=== PATIENT | female | born 1980 | race African-American/Black ===

== ENCOUNTER 2024-05-26 10:13 | Outpatient (AMB) | payer OTHER, SELFPAY ==
--- NOTE | 2024-05-26 10:36 | A.OFFPC_ITS ---
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 Note: Pt is here today as a New Patient to est care/PE Allergies No Known Allergies Allergy (Verified 05/26/24 10:47) Medication List - Last Reconciled 05/26/24 by Kamala Shah MD bupropion HCl XL 150 mg PO QAM cholecalciferol (vitamin D3) 50 mcg PO DAILY esomeprazole magnesium 40 mg PO DAILY ondansetron 4 mg PO Q8H simethicone 80 mg PO BID-QID PRN spironolactone 50 mg PO BID valacyclovir 500 mg PO BID Tobacco use date assessed: 05/26/24 Dental Screening Dental Screen Date: 05/26/24 Did you have a dental visit in the last 12 months?: Yes Did you have a dental problem in the last 6 months where you did not have access to dental care?: No Was dental information given to patient?: Patient has dentist 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 She has history of chronic GERD and Davis's esophagus, currently on esomeprazole 40 mg daily, has hidradenitis suppurativa currently on spironolactone 50 mg twice a day and has history of genital herpes. Patient states that she has been diagnosed with anxiety depression even when she was younger and has been placed on bupropion HCL 150 mg once a day by her previous PCP which she states she is able to tolerate, but does not seem to help at all. She goes to [facility] for her routine Pap and pelvic exam, last Pap and pelvic exam was done 03/2024 with benign findings per patient. Complains of vaginal itching, requesting a prescription for fluconazole, as she thinks she developed a yeast infection after recent antibiotic treatment for her hidradenitis suppurativa given by her previous PCP. [facility] Medical History (Updated 05/26/24 @ 11:07 by Kamala Shah MD) Chronic GERD History of Davis's esophagus Anxiety and depression Hidradenitis suppurativa History of herpes genitalis Surgical History (Updated 05/26/24 @ 11:07 by Kamala Shah MD) Hx of colonoscopy History of esophagogastroduodenoscopy (EGD) History of Hx of breast reduction, elective History of sleeve gastrectomy Family History (Updated 05/26/24 @ 11:03 by Kamala Shah MD) Father Mental health disorder Mother Ovarian cancer, Onset Age: 60 Chronic kidney disease, stage 4 (severe) Essential hypertension Osteoarthritis Social History (Updated 05/26/24 @ 11:18 by Kamala Shah MD) Housing: House Alcohol intake: current Alcohol intake frequency: holidays/special occasions only Alcohol type: wine Patient Tobacco Use Status: Never used Tobacco e-Cigarette/Vaping Use: Never Used service: No Current occupational status: employed Cognitive needs: No Hearing needs: No Vision needs: Yes Female Reproductive History Menstrual Date of last menstrual period: 04/20/24 control method: vaginal ring Other: Goes to [facility], last Pap smear was around 03/2024 Questionnaire PHQ-9 Over the last 2 weeks, how often have you been bothered by any of the following problems? 1. Little interest or pleasure in doing things: more than half the days 2. Feeling down, depressed, or hopeless: more than half the days 3. Trouble falling or staying asleep, or sleeping too much: more than half the days 4. Feeling tired or having little energy: nearly every day 5. Poor appetite or overeating: nearly every day 6. Feeling bad about yourself - or that you are a failure or have let yourself or your family down: several days 7. Trouble concentrating on things, such as reading the newspaper or watching television: nearly every day 8. Moving or speaking so slowly that other people could have noticed. Or the opposite - being so fidgety or restless that you have been moving around a lot more than usual: several days 9. Thoughts that you would be better off or of hurting yourself in some way: not at all Total score: 17 Depression Screening Interpretation: Positive Depression Screening Follow-up: Existing condition and In treatment Depression Screening Done: Yes 95137 - PHQ-9 Billing: Yes Source: Developed by Drs. Tyshawn Arevalo, Ysabel Ricketts, Quinten Eugene and colleagues, with an educational melissa from [employer]. Thrive Questionnaire Date Thrive assessed: 05/26/24 I am a: Patient What is your living situation today?: I have a steady place to live Within the past 12 months, did the food you bought not last and you didn't have the money to get more?: Often true Within the past 12 months, did you worry whether your food would run out before you got money to buy more?: Never true Do you have trouble paying for medicines?: No Do you have trouble getting transportation to medical appointments?: No Do you have trouble paying your heating and electricity bill?: Yes Do you have trouble taking care of your child, family member or friend?: No Do you have trouble with day-to-day activities such as bathing, preparing meals, shopping, managing finances, etc.?: No Are you currently unemployed and looking for a job?: No Are you interested in more education?: No Please select the resources that you would like help with: None Currently or been in a relationship where the following occur: No concerns reported THRIVE Score: 2 AUDIT C Alcohol Use Questionnaire (AUDIT-C) 1. How often do you have a drink containing alcohol?: Monthly or less 2. How many drinks containing alcohol do you have on a typical day when you are drinking?: 1 or 2 3. How often do you have six or more drinks on one occasion?: Never Total Score: 1 YAKELIN-7 AMB Questionnaire YAKELIN-7 Date YAKELIN - 7 assessed: 05/26/24 Feeling nervous, anxious, or on edge: 3 = Nearly every day Not being able to stop or control worryin = Nearly every day Worrying too much about different things: 3 = Nearly every day Trouble relaxin = Nearly every day Being so restless that it is hard to sit still: 3 = Nearly every day Becoming easily annoyed or irritable: 3 = Nearly every day Feeling afraid as if something awful might happen: 0 = Not at all Total YAKELIN-7 score (0-4 normal; 5-9 mild; 10-14 moderate; 15-21 severe): 18 Source: Developed by Ysabel Hodge Kurt Kroenke and colleagues, with an educational melissa from [employer]. YAKELIN-7 Assessment Billing YAKELIN-7 Assessment Tool: YAKELIN-7 Assessment 67507 Review of Systems Const Denies body aches, Denies fatigue, Denies fever(s) and Denies headache(s) Eyes Denies change in vision ENT Denies dizziness, Denies headache(s) and Denies nasal congestion Card Denies chest pain, Denies lightheadedness, Denies palpitations and Denies dyspnea Resp Denies chest congestion, Denies cough, Denies dyspnea and Denies wheezing GI Denies abdominal pain, Denies change in bowel habits and Denies heartburn Details: Complaining of vaginal itching, recently was on antibiotics for her hidradenitis suppurativa Denies hematuria, Denies urinary frequency, Denies dysuria and Denies urinary urgency Skin/Breast Details: Sees Dr. Feliciano for hidradenitis suppurativa in axilla and inguinal areas, has recurrent antibiotics and is currently on spironolactone Denies breast pain and Denies breast mass Neuro Denies dizziness and Denies headache(s) Psych Reports as per HPI Endo Denies fatigue, Denies polydipsia, Denies polyuria and Denies palpitations Blanco/Lymph Denies easy bruising Aller/Immun Denies seasonal rhinorrhea and Denies wheezing Physical exam (Primary Care) Vital Signs: Last Vital Signs Temp 98.2 F 05/26/24 10:38 Pulse 52 05/26/24 10:38 Resp 16 05/26/24 10:38 BP 100/66 05/26/24 10:38 Pulse Ox 99 05/26/24 10:38 Oxygen Delivery Method Room Air 05/26/24 10:38 BMI result Body Mass Index 32.7 Tobacco/Smoking Status: Tobacco use Status Tobacco use date assessed 05/26/24 05/26/24 10:49 Patient Tobacco Use Status Never used Tobacco 05/26/24 11:18 e-Cigarette/Vaping Use Never Used 05/26/24 11:18 PHQ-9: PHQ-9 Score PHQ-9: Total score 05/26/24 11:24 Depression Screening Interpretation: Positive Depression Screening Follow-up: Existing condition and In treatment Thrive Assessment: Date of Thrive Assessment Date Thrive assessed 05/26/24 05/26/24 10:49 Currently or been in a relationship where the following occur: No concerns reported Const General: comfortable, no acute distress and alert Orientation/consciousness: patient oriented x3 HENMT Ears: external ears normal, TM's normal bilaterally and EAC's normal General nose exam: Normal external nose present Mouth: Normal oral and palatal mucosa present, oropharynx normal and moist mucous membranes Eyes General: appearance normal, both eyes and all related structures Conjunctivae: conjunctivae normal Sclerae: sclerae normal Pupils: Equal, round and reactive pupils present EOM: EOMs intact bilaterally Neck Neck: Yes full ROM, Yes no lymphadenopathy and Yes supple Resp Effort & Inspection: normal respiratory effort and able to speak in complete sentences Auscultation: clear to auscultation bilaterally Cardio Rate: regular rate Rhythm: regular rhythm Heart sounds: S1 normal heart sound present and S2 normal heart sound present GI Palpation (GI): Soft to palpation, nontender and no masses Auscultation: normal bowel sounds Back/Spine/Pelvis Back: No back tenderness Skin General skin exam: no rashes or lesions noted Neuro General: patient oriented x3, gait normal, tone normal, moves all extremities, Normal light touch and pain sensation and no focal motor deficits Cranial nerves: Yes CN's II-XII intact bilaterally and Yes Equal, round and reactive pupils present Cognition (Neuro): normal cognition Extrem General: Yes full ROM, Yes no joint enlargement, Yes no clubbing, cyanosis or edema and Yes no calf tenderness Psych Appearance: grossly normal and well kempt Mental Status: mental status grossly normal Speech and movement: Normal speech and movement present Affect: normal affect Attitude: cooperative Thought process: Normal thought process present Thought content: Normal thought content present Coding Level of Care Code New Pt Level 4 (54761) Diagnoses Anxiety and depression F41.9; F32.A Pruritus of vagina N89.8 Additional Codes YAKELIN-7 Assessment Billing - YAKELIN-7 Assessment Tool: YAKELIN-7 Assessment 06283 ([id number]) PHQ-9 - 58467 - PHQ-9 Billing: Yes ([id number]) Assessment & Plan Assessment & Plan (1) Anxiety and depression: Comment: Prescribed previously at [facility] a year ago by Georges Farfan Code(s): F41.9 - Anxiety disorder, unspecified; F32.A - Depression, unspecified Category: Medical Plan: Referred to Psychiatry for further evaluation management, increased bupropion dose to 300 mg XL taken once a day in a.m. referred to our mental health coordinator Thang, for referral to see a therapist. (2) Pruritus of vagina: Code(s): N89.8 - Other specified noninflammatory disorders of vagina Plan: Prescription sent for fluconazole 150 mg per tablet to take 1 tablet once and then may repeat another dose after 3 days if symptoms on resolved. 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
[2024-05-26 10:38] VITALS: BP 100/66; PULSE 52; RESP 16; TEMP 36.8; O2SAT 99; BMI 32.7
--- OUTSIDE RECORDS SUMMARY | 2024-05-26 12:04 | XMS_ITS | Encounter Summary ---
Author Organization [facility] Address [address] [place] [address] Care Team Providers Care Manager Ob Name Role Phone David Patel MD Primary Care Provider + Luis Healy MD Unavailable [phone] Encounter Details Date Type Department Care Team Description 09/01/2022 Orders Only Medical Records [address] [place] [address] Claudio Belcher, MEDICAL ASSISTANT INSTRUCTOR [address] [place] [address] Social History Tobacco Use Types Packs/Day Years Used Date Smoking Tobacco: Never Smokeless Tobacco: Never Alcohol Use Standard Drinks/Week Comments Yes 0 (1 standard drink = 0.6 oz pur e alcohol) rarely- once every 6 months Sex Assigned at Date Recorded Not on file Job Start Date Occupation Industry Not on file Not on file Not on file COVID-19 Exposure Response Date Recorded In the last 10 days, have yo u been in contact with someone who was confirmed or suspected to have Coronavirus/COVID-19? Unable to assess 09/01/2022 7:40 AM EDT documented as of this encounter Plan of Treatment Not on file documented as of this encounter Procedures Procedure Name Priority Date/Time Associated Diagnosis Comments OUTSIDE LAB Routine 08/29/2022 documented in this encounter Results * OUTSIDE LAB (08/29/2022) Claudio Belcher NP LAB documented in this encounter Visit Diagnoses Not on filedocumented in this encounter Care Teams Manager Ob Relationship Specialty Start Date End Date David Patel MD [address] [place] [address] PCP - General Internal Medicine 07/19/21 Luis Healy MD [address] [place] [address] [place] [address] Specialist Cardiovascular Disease 07/21/22 documented as of this encounter
--- OUTSIDE RECORDS SUMMARY | 2024-05-26 12:04 | XMS_ITS | Encounter Summary ---
Author Organization [facility] Address [address] [place] [address] Care Team Providers Care Master Naval Parachutist Name Role Phone David Patel MD Primary Care Provider + Luis Healy MD Unavailable [phone] Reason for Visit * Reason Onset Date Comments Testing 12/01/2023 Encounter Details Date Type Department Care Team Description 12/01/2023 Telephone Cardio PVCA Diag Testing [address] [place] [address] Naheed Su PA-C [address] [place] [address] Testing Social History Tobacco Use Types Packs/Day Years Used Date Smoking Tobacco: Never Smokeless Tobacco: Never Alcohol Use Standard Drinks/Week Comments Yes 0 (1 standard drink = 0.6 oz pur e alcohol) rarely- once every 6 months Sex Assigned at Date Recorded Not on file Job Start Date Occupation Industry Not on file Not on file Not on file documented as of this encounter Miscellaneous Notes * Telephone Encounter - Naheed Su PA-C - 12/01/2023 10:45 AM EDT Noted, thank you * Telephone Encounter - Amy Blancowendy Ness - 12/01/2023 10:00 AM EDT Patient has to be scheduled at [facility] due to insurance, [facility]. Thank you! documented in this encounter Plan of Treatment Not on file documented as of this encounter Visit Diagnoses Not on filedocumented in this encounter Care Teams Master Naval Parachutist Relationship Specialty Start Date End Date David Patel MD [address] [place] [id number] PCP - General Internal Medicine 07/19/21 Luis Healy MD [address] [place] [address] Dr [address] [place] [address] Specialist Cardiovascular Disease 07/21/22 documented as of this encounter
--- OUTSIDE RECORDS SUMMARY | 2024-05-26 12:04 | XMS_ITS | Encounter Summary ---
Author Organization [facility] Address [address] [place] [address] Care Team Providers Care Erector Operator Name Role Phone David Patel MD Primary Care Provider + Luis Healy MD Unavailable [phone] Encounter Details Date Type Department Care Team Description 10/07/2022 Release of Information Medical Records [address] [place] [id number] [facility] Social History Tobacco Use Types Packs/Day Years [...] was confirmed or suspected to have Coronavirus/COVID-19? No / Unsure 10/07/2022 9:09 AM EDT documented as of this encounter Plan of Treatment Not on file documented as of this encounter Visit Diagnoses Not on filedocumented in this encounter Care Teams Erector Operator Relationship Specialty Start Date End Date David Patel MD [address] [place] [id number] PCP - General Internal Medicine 07/19/21 Luis Healy MD [address] [place] [address] [place] [address] Specialist Cardiovascular Disease 07/21/22 documented as of this encounter
--- OUTSIDE RECORDS SUMMARY | 2024-05-26 12:04 | XMS_ITS | Encounter Summary ---
Author Organization [facility] Address [address] [place] [address] Care Team Providers Care Rod Machine Operator Name Role Phone Rivka Cage DO Primary Care Pro vider Unavailable Karla Merritt MD Primary Care Provider Unavail able Kesha Joy MD Primary Care Provider David Kumar MD Primary Care Provider + Luis Healy MD Unavailable [phone] Reason for Visit * Reason Onset Date Comments Prior Authorization 12/01/2019 Tretinoin 0. 025% Cream Encounter Details Date Type Department Care Team Description 12/01/2019 Telephone Dermatology - [address] [address] Sharon Fung PA-C Prior Authorization (Tretinoin 0.025% Cream) Social History Tobacco Use Types Packs/Day Years [...] Exposure Response Date Recorded In the last month, have you been in contact with someone who was confirmed or suspected to have Coronavirus / COVID-19? Yes 12/01/2019 12:38 PM EDT documented as of this encounter Miscellaneous Notes * Telephone Encounter - Damaris Montero M.A. - 12/05/2019 8:00 AM EDT Prior authorization for the tretinoin cream was approved Approved from 12/02/2019 until 12/01/2020 Prior authorization approval number # [id number] Approval faxed to [facility] Angy Howell Mo at [phone] * Telephone Encounter - Damaris Montero M.A. - 12/02/2019 12:13 PM EDT Prior authorization for the tretinoin cream completed today on [facility] form Dx Acne vulgaris Intitial start Try an fails O.T.C products Noxzema cream * Telephone Encounter - Michela Otero - 12/01/2019 2:09 PM EDT Prior Authorization for Medication-do not complete and send this encounter unless you have the fax from the pharmacy. Is this a Cover My Meds request: Yes -- Kline Code [id number] Name of Medication Tretinoin 0.025% Cream Dose of Medication What is the RX # from the faxed refill? How does patient take this med? What Pharmacy did the fax come from: [facility] fax #: [phone] [employer] Information from fax: What Prescription Plan does the patient have? BIN/PCN if applicable: Cardholder ID: Person Code: Relationship Code: Help desk phone: documented in this encounter Plan of Treatment Not on file documented as of this encounter Visit Diagnoses Not on filedocumented in this encounter Care Teams Rod Machine Operator Relationship Specialty Start Date End Date Rivka Cage DO PCP - General Internal Medicine 09/01/19 08/22/20 Karla Merritt MD PCP - General Internal Medicine 08/23/20 02/25/21 Kesha Joy MD PCP - General Internal Medicine 02/26/21 07/18/21 David Patel MD [address] [place] [address] PCP - General Internal Medicine 07/19/21 Luis Healy MD [address] [place] [address] [place] [address] Specialist Cardiovascular Disease 07/21/22 documented as of this encounter
--- OUTSIDE RECORDS SUMMARY | 2024-05-26 12:04 | XMS_ITS | Encounter Summary ---
Author Organization [facility] Address [address] [place] [address] Care Team Providers Care Vision Rehabilitation Therapist Name Role Phone Bell Milton MD Primary Care Provider Kesha Lu MD Primary Care Provider Adrian key [place] Colasacco, Rivka DO Primary Care Pro vider Unavailable Haritha Morales Primary Care Provider Unavailab le [place] Colasacco, Rivka DO Primary Care Pro vider Unavailable Zelalem Mathews MD Primary Care Provider Unavacortes labgerardo [place] Colasacco, Rivka DO Primary Care Pro vider Unavailable Karla Merritt MD Primary Care Provider Unavail able Kesha Joy MD Primary Care Provider David Kumar MD Primary Care Provider + Luis Healy MD Unavailable [phone] Encounter Details Date Type Department Care Team Description 04/28/2011 [facility] Medical Records [address] [place] [address] Social History Tobacco Use Types Packs/Day Years Used Date Smoking Tobacco: Never Smokeless Tobacco: Never Alcohol Use Standard Drinks/Week Comments Yes 0 (1 standard drink = 0.6 oz pur e alcohol) rarely- once every 6 months Sex Assigned at Date Recorded Not on file Job Start Date Occupation Industry Not on file Not on file Not on file documented as of this encounter Plan of Treatment Not on file documented as of this encounter Procedures Procedure Name Priority Date/Time Associated Diagnosis Comments OUTSIDE VASCULAR STUDY Routine 04/28/2011 OUTSIDE EKG Routine 04/28/2011 OUTSIDE PLAIN FILM Routine 04/28/2011 OUTSIDE LAB Routine 04/28/2011 documented in this encounter Results * OUTSIDE PLAIN FILM (04/28/2011) Provider Abstract RADIOLOGY * OUTSIDE LAB (04/28/2011) Provider Abstract LAB * OUTSIDE VASCULAR STUDY (04/28/2011) Provider Abstract CARDIOLOGY * OUTSIDE EKG (04/28/2011) Provider Abstract CARDIOLOGY documented in this encounter Visit Diagnoses Not on filedocumented in this encounter Care Teams Vision Rehabilitation Therapist Relationship Specialty Start Date End Date Bell Milton MD PCP - General 11/13/10 12/01/12 Kesha Joy MD PCP - General Internal Medicine 12/02/12 06/20/15 Rivka Cage DO PCP - General Internal Medicine 06/21/15 07/02/15 Haritha Morales PCP - General Family Practice 07/03/15 09/02/15 Rivka Cage DO PCP - General Internal Medicine 09/03/15 08/08/19 Zelalem Mathews MD PCP - General Internal Medicine 08/09/19 08/31/19 Rivka Cage DO PCP - General Internal Medicine 09/01/19 08/22/20 Karla Merritt MD PCP - General Internal Medicine 08/23/20 02/25/21 Kesha Joy MD PCP - General Internal Medicine 02/26/21 07/18/21 David Patel MD [address] [place] [id number] PCP - General Internal Medicine 07/19/21 Luis Healy MD [address] [place] [address] [place] [address] Specialist Cardiovascular Disease 07/21/22 documented as of this encounter
--- OUTSIDE RECORDS SUMMARY | 2024-05-26 12:04 | XMS_ITS | Encounter Summary ---
Author Organization [facility] Address [address] [place] [address] Care Team Providers Care Grid Molder Name Role Phone David Patel MD Primary Care Provider + Luis Healy MD Unavailable [phone] Encounter Details Date Type Department Care Team Description 05/19/2023 Orders Only Adult Medicine [address] [address] Naheed Maravilla PA-C [address] [place] [address] [phone] Iron deficiency anemia, unspecified iron deficiency anemia type (Primary Dx) Social History Tobacco Use Types Packs/Day Years [...] documented as of this encounter Visit Diagnoses Diagnosis Iron deficiency anemia, unspecified iron deficiency anemia type- Primary documented in this encounter Care Teams Grid Molder Relationship Specialty Start Date End Date David Patel MD [address] [place] [id number] PCP - General Internal Medicine 07/19/21 Luis Healy MD [address] [place] [address] [address] [place], [place] [phone] Specialist Cardiovascular Disease 07/21/22 documented as of this encounter
--- OUTSIDE RECORDS SUMMARY | 2024-05-26 12:04 | XMS_ITS | Encounter Summary ---
Author Organization [facility] Address [address] [place] [address] Care Team Providers Care Pyrometer Temperature Regulator Name Role Phone Kesha Joy MD Primary Care Provider Adrian Edwards Colasacco, Rivka DO Primary Care Pro vider Unavailable Haritha Morales Primary Care Provider Unavailab le [place] Colasacco, Rivka DO Primary Care Pro vider Unavailable Zelalem Mathews MD Primary Care Provider Unavai labgerardo [place] Colasacco, Rivka DO Primary Care Pro vider Unavailable Karla Merritt MD Primary Care Provider Unavail able Kesha Joy MD Primary Care Provider David Kumar MD Primary Care Provider + Luis Healy MD Unavailable [phone] Encounter Details Date Type Department Care Team Description 02/08/2014 Release of Information Medical Records [address] [place] [id number] Abstract, Provider Social History Tobacco Use Types Packs/Day Years Used Date Smoking Tobacco: Never Smokeless Tobacco: Never Alcohol Use Standard Drinks/Week Comments Yes 0 (1 standard drink = 0.6 oz pur e alcohol) socially Sex Assigned at Date Recorded Not on file Job Start Date Occupation Industry Not on file Not on file Not on file documented as of this encounter Plan of Treatment Not on file documented as of this encounter Visit Diagnoses Not on filedocumented in this encounter Care Teams Pyrometer Temperature Regulator Relationship Specialty Start Date End Date Kesha Joy MD PCP - General Internal [...] Internal Medicine 02/26/21 07/18/21 David Patel MD [address] [place] [id number] PCP - General Internal Medicine 07/19/21 Luis Healy MD [address] [place] [address] [place] [address] Specialist Cardiovascular Disease 07/21/22 documented as of this encounter
--- OUTSIDE RECORDS SUMMARY | 2024-05-26 12:04 | XMS_ITS | Clinical Summary ---
Author Organization [facility] Address [address] [place] [id number] Care Team Providers Care Survey Workers Supervisor Name Role Phone David Patel MD Primary Care Pr ovider Medications Medication Sig Dispensed Refills Start Date End Date Status Multiple Vitamins-Minerals (DEKAs Bariatric) CHEW Chew 1 tablet by mouth daily. 0 06/09/2022 Active Social History Tobacco Use Types Packs/Day Years Used Date Smoking Tobacco: Never Assessed Sex and Gender Information Value Date Recorded Sex Assigned at Female 07/24/2022 2:17 PM EDT Gender Identity Female 07/24/2022 2:17 PM EDT Sexual Orientation Straight 07/24/2022 2: 17 PM EDT Job Start Date Occupation Industry Not on file Not on file Not on file Last Filed Vital Signs Vital Sign Reading Time Taken Comments Blood Pressure 114/51 07/28/2022 2:26 PM EDT Pulse 75 07/28/2022 2:26 PM EDT Temperature 36.5 ??C (97.7 ??F) 07/28/2022 2:26 PM ED T Respiratory Rate - - Oxygen Saturation 100% 07/28/2022 2:26 PM EDT Inhaled Oxygen Concentration - - Weight - - Height - - Body Mass Index - - Plan of Treatment Health Maintenance Due Date Last Done Comments Hepatitis C Screening 1979 COVID-19 Vaccine (#1) 02/07/1980 Depression Screening 1991 Preventative Health Evaluation 08/07/1997 Cervical Cancer Screening (Pap Smear) 08/07/2000 Hepatitis B Vaccines (3 of 3 - 19+ 3-dose series) 01/23/2017 11/28/2016, 06/11/2016 Influenza Vaccine (#1) 2023 9, 01/17/2016, 02/18/2013 DTap / Tdap / Td (4 - Td or Tdap) 07/20/2031 07/19/2021, 09/09/2010, 07/28/2009 Pneumococcal Vaccine Aged Out No long er eligible based on patient's age to complete this topic RSV Ped < 20 months Aged Out No longe r eligible based on patient's age to complete this topic Care Teams Survey Workers Supervisor Relationship Specialty Start Date End Date David Patel MD [address] [place] [address] PCP - General 07/15/22
--- OUTSIDE RECORDS SUMMARY | 2024-05-26 12:04 | XMS_ITS | Encounter Summary ---
Author Organization [facility] Address [address] [place] [address] Care Team Providers Care Fire Crew Specialist Name Role Phone David Patel MD Primary Care Provider + Luis Healy MD Unavailable Encounter Details Date Type Department Care Team Description 10/08/2022 SCAN Medical Records [address] [place] [id number] [facility] Social History Tobacco Use Types Packs/Day [...] on filedocumented in this encounter Care Teams Fire Crew Specialist Relationship Specialty Start Date End Date David Patel MD [address] [place], [place] [phone] PCP - General Internal Medicine 07/19/21 Luis Healy MD [address] [place] [address] [place] [address] Specialist Cardiovascular Disease 07/21/22 documented as of this encounter
--- OUTSIDE RECORDS SUMMARY | 2024-05-26 12:04 | XMS_ITS | Encounter Summary ---
Author Organization [facility] Address [address] [place] [address] Care Team Providers Care Carpet Floor Layer Apprentice Name Role Phone Kesha Joy MD Primary Care Provider David Kumar MD Primary Care Provider + Luis Healy MD Unavailable [phone] Encounter Details Date Type Department Care Team Description 05/08/2021 Hospital Medical Records [address] [place] [id number] [place] [address] Social History Tobacco Use Types Packs/Day Years [...] Name Priority Date/Time Associated Diagnosis Comments OUTSIDE PLAIN FILM Routine 05/08/2021 documented in this encounter Results * OUTSIDE PLAIN FILM (05/08/2021) Provider Abstract RADIOLOGY documented in this encounter Visit Diagnoses Not on filedocumented in this encounter Care Teams Carpet Floor Layer Apprentice Relationship Specialty Start Date End Date Kesha Joy MD PCP - General Internal Medicine 02/26/21 07/18/21 David Patel MD [address] [place] [id number] PCP - General Internal Medicine 07/19/21 Luis Healy MD [address] [place] [address] [place] [address] Specialist Cardiovascular Disease 07/21/22 documented as of this encounter
--- OUTSIDE RECORDS SUMMARY | 2024-05-26 12:04 | XMS_ITS | Clinical Summary ---
Author Organization [address] [place] [address] [place] [phone] Phone Care Team Providers Care Guitar Maker Hand Name Role Phone David Patel MD Primary Care Pr ovider Allergies No known active allergies Medications acetaminophen (TYLENOL) 500 mg tablet Take 2 tablets (1,000 mg total) by mouth. 06/22/19 23 Active buPROPion XL (WELLBUTRIN XL) 150 mg 24 hr tablet Take 1 tablet (150 mg total) by mouth 1 (one) time each day in the morning. 11/25/19 24 Active cholecalciferol (VITAMIN D-3) 50 mcg (2,000 unit) tablet Take 1 tablet (2,000 Units total) by mouth 1 (one) time each day. 12/11/19 24 Active fexofenadine (HERIBERTO) 180 mg tablet Take 1 tablet (180 mg total) by mouth 1 (one) time each day. 05/18/19 24 Active fluticasone propionate (FLONASE) 50 mcg/actuation nasal spray 1 spray per nostril twice per day, as needed for nasal congestion 05/18/19 24 Active spironolactone (ALDACTONE) 50 mg tablet Take 1 tablet (50 mg total) by mouth 2 (two) times a day. Active valACYclovir (VALTREX) 500 mg tablet Take 1 tablet (500 mg total) by mouth 2 (two) times a day. Active esomeprazole (NexIUM) [address] capsuleJasper ons:Gastroesoph ageal reflux disease, unspecified whether esophagitis present Take 1 capsule (40 mg total) by mouth 1 (one) time each day before breakfast. Do not open capsule. 30 each 11 01/27/20 24 025 Active simethicone (MYLICON) 80 mg chewable tablet Chew 1 tablet (80 mg total) every 6 (six) hours if needed for flatulence. 90 tablet 3 01/27/20 24 Active ergocalciferol (VITAMIN D-2) 1,250 mcg (50,000 unit) capsule Take 1 capsule (50,000 Units total) by mouth 1 (one) time per week. 12 each 01/27/20 24 025 Active etonogestreL-et hinyl estradioL (NUVARING) 0.12-0.015 mg/24 hr vaginal ring Insert 1 each into the vagina every 28 (twenty-eight) days. Insert vaginally and leave in place for 3 consecutive weeks, then remove for 1 week. 3 each 3 03/10/19 25 026 Active magnesium, amino acid chelate, 133 mg tablet Take 1 tablet (133 mg total) by mouth 2 (two) times a day. Active nystatin (MYCOSTATIN) cream Apply to area twice daily for 14 days 11/25/19 24 025 Discontinued ferrous sulfate 325 mg (65 mg elemental iron) tablet Take 1 tablet (325 mg total) by mouth 1 (one) time each day. 90 each 02/21/19 25 025 Active Problems Problem Noted Date Diagnosed Date Excess skin 05/02/2024 Rash 05/02/2024 Intertrigo 05/02/2024 Abdominal pannus 05/02/2024 Family history of ovarian cancer 03/10/2024 Overview (03/10/2024): Pt has tested BRCA neg Anxiety 11/25/2023 Aneurysm of ascending aorta (CMS/HCC V24) 2022 Overview (12/18/2023): Last Assessment & Plan: The patient was found to have an apparent ascending aorta aneurysm noted on a chest x-ray. A chest CT scan was recommended but he has not been completed. During today's visit, the patient tells me that her father had an ascending aorta aneurysm for which she underwent surgery. She denies any personal history of connective tissue disease. She denies any family history of a bicuspid aortic valve or sudden cardiac . At this point, we will order a chest CT scan and abdomen CT scan in order to evaluate the diameter of her thoracic and abdominal aorta. We will also order an echocardiogram to rule out any significant aortic valve disease. In the meantime, the patient was instructed to avoid any contact sports and to avoid lifting any objects weighing more than 35 pounds. Chest pain 10/08/2022 Overview (12/18/2023): Last Assessment & Plan: The patient came for evaluation due to episodes of chest pain. She has been experiencing a chest tightness sensation that occurs with exertion. The symptoms have been present for years. However, she states that the same level of exertion does not always result in the development of chest tightness symptoms. She denies any chest pain at rest. The patient has the following risk factors for coronary artery disease: Obesity. Symptoms, we will proceed with further cardiac testing. We will order an echocardiogram to rule out any significant aortic valve disease and rule out any significant ascending aorta dilation, given her chest x-ray findings. After the echocardiogram, then we will proceed with a stress test in order to rule out any cardiac ischemia with exertion. Given the patient's age, gender, description of the symptoms, and risk factors for CAD, the patient has an intermediate risk for coronary artery disease. As such, will order a stress test for evaluation of the patient's chest pain. Palpitations 10/08/2022 Overview (12/18/2023): Last Assessment & Plan: The patient has been experiencing episodes of palpitations. We will order a Holter monitor to evaluate for any underlying arrhythmias as a cause of her symptoms. We will also order an echocardiogram to rule out any significant structural heart disease. Abnormal CXR 10/03/2022 Iron deficiency anemia 07/19/2021 Gastroesophageal reflux disease 06/18/2021 Chronic sinusitis 03/29/2018 Vitamin B12 deficiency 03/29/2018 Low back pain 05/10/2008 Acquired hypothyroidism 03/06/2000 Encounters Date Type Department Care Team Description 05/02/2024 11:00 AM EDT Consult Plastic & Reconstructive Surgery [facility] [address] [place] [phone] Terrence Guzman DO Abdominal pannus (Primary Dx); Excess skin; Rash; Intertrigo 05/02/2024 Telephone General Surgery [facility] [address] [place] [address] Terrence Guzman DO prior auth (05/02/2024 pending HNE ) 03/10/2024 11:00 AM EST Office Visit Obstetrics and Gynecology [facility] [address] [place] [phone] Manda Perez CNM Women's annual routine gynecological examination (Primary Dx); Screen for STD (sexually transmitted disease); Encounter for screening mammogram for malignant neoplasm of breast; Vaginal discharge; Family history of ovarian cancer 03/04/2024 11:02 AM EST - 03/04/2024 11:59 PM EST Hospital Encounter [facility] [address] [place] [phone] Julius Calle MD Iron deficiency anemia, unspecified iron deficiency anemia type (Primary Dx) Discharge Disposition: Home or Self Care 02/26/2024 1:54 PM EST - 02/26/2024 11:59 PM [facility] Hospital Encounter [address] [phone] Julius Calle MD Iron deficiency anemia, unspecified iron deficiency anemia type (Primary Dx) Discharge Disposition: Home or Self Care from Last 3 Months Immunizations Name Administration Dates Next Due Hepatitis B (Jebkrmo-J-Ldfit , Recombivax HB-Adult) 19yo and older 11/28/2016,06/11/2016 Influenza Quadravalent, MDCK , 0.5ml, preservative free (Flucelvax) 6mo and older 03/29/2018 Influenza trivalent, 0.5mL, preservative free (Fluarix; FluLaval; Fluzone) ages 6mo and older (Afluria) 3 years and older 01/17/2016,02/18/2013 PPD Test 11/28/2016,08/03/2014 Td Tetanus diptheria (Tdvax) 7yo and older 07/19 Tdap Tetanus diptheria acell ular pertussis (Boostrix; Adacel) 7yo and older 09/09/2010 Surgical History Surgery Date Site/Laterality Comments SECTION PROCEDURE: [place] DELIVERY ONLY; COMMENT: x2 BREAST REDUCTION Bilateral PROCEDURE: [place] BREAST REDUCTION BARIATRIC SURGERY sleeve gastrectomy and hiatal hernia repair in 06/20/2022 Medical History Medical History Date Comments Chronic low back pain 07/18/2011 DX:Chronic low back pain H/O bilateral breast reducti on surgery 2016 DX:H/O bilateral breast redu ction surgery 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 DX:Herpes simplex antibody positive Herpes genitalis DX:Herpes genit cristi Family History Medical History Relation Name Comments Other: cardiac Father Missing a hea rt valve Nephrolithiasis Mother gout Ovarian cancer Mother Colon cancer Paternal Grandmother Breast cancer Neg Hx Kidney cancer Neg Hx Pancreatic cancer Neg Hx Prostate cancer Neg Hx Uterine cancer Neg Hx Relation Name Status Comments Brother Alive Healthy Father Alive Healthy Mother Alive Healthy Paternal Grandmother Sister Alive Healthy Social History Tobacco Use Types Packs/Day Years Used Date Smoking Tobacco: Never Smokeless Tobacco: Never Tobacco Cessation:Counseling Given: Not Answered Alcohol Use Standard Drinks/Week Comments Yes 0 (1 standard drink = 0.6 oz pur e alcohol) Comments Unknown Sex and Gender Information Value Date Recorded Sex Assigned at Female 02/23/2024 10:30 AM EST Legal Sex Female 5:37 AM EST Gender Identity Female 02/23/2024 10:30 AM EST Sexual Orientation Straight 02/23/2024 10 :30 AM EST Obstetrics History Para Term AB IAB SAB Ectopic Multiple Livin g Live Births 3 3 1 2 3 3 Date Outcome GA Total Labor Labor/2nd/3rd Weight Sex Type Anes PTL Cristina A1 A5 Name Clin 1998 Term 40w 0d 4451 g (157 oz) M Vag-S pont Living 2002 30w 0d 2268 g (80 oz) M CS-Un spec Living Comments:toxemia in mo m 2009 25w 0d 907 g (32 oz) F CS-Un spec Living Comments:toxemia in mo m Last Filed Vital Signs Vital Sign Reading Time Taken Comments Blood Pressure 108/46 05/02/2024 10:38 AM EDT Pulse 62 05/02/2024 10:38 AM EDT Temperature 36.4 ??C (97.6 ??F) 03/04/2024 11:[address] Respiratory Rate 16 03/10/2024 11:01 AM EST Oxygen Saturation 100% 03/04/2024 11:38 AM EST Inhaled Oxygen Concentration - - Weight 80.5 kg (177 lb 6.4 oz) 05/02/2024 10:38 AM EDT Height 157.5 cm (5' 2 ) 05/02/2024 10:38 AM EDT Body Mass Index 32.45 05/02/2024 10:38 AM EDT Plan of Treatment Upcoming Encounters Date Type Department Care Team (Latest Contact Info) Description 08/01/2024 1:00 PM EDT Consult Plastic & Reconstructive Surgery [address] [phone] Terrence Guzman, [address] [address] 08/09/2024 7:30 AM EDT Hospital Encounter [facility] OR [address] [place] [phone] Terrence Guzman DO [address] [address] 08/09/2024 7:30 AM EDT - 08/09/2024 10:00 AM EDT Surgery [facility] OR [address] [place] [phone] Terrence Guzman DO [address] [address] PANNICULECTOMY [[id number] (CPT??)] 08/17/2024 1:00 PM EDT Office Visit Plastic & Reconstructive Surgery [facility] [address] [phone] Lázaro Price PA [address] [address] Scheduled Procedures Name Priority Associated Diagnoses Date/Ti me PANNICULECTOMY Excess skin Abdominal pannus 08/09/2024 7:30 AM EDT Health Maintenance Due Date Last Done Comments Breast Cancer Screening 1980 Hepatitis B Vaccines (3 of 3 - 19+ 3-dose series) 12/25/2017 10/30/2017, 11/28/2016, 06/11/2016 Social Influencers of Health Screening 01/18/2022 COVID-19 Vaccine ( season) 2023 11/10/2022, 02/22/2020, 01/30/2020 Depression Screening 11/24/2024 11/25/2023 Cholesterol Screening (Lipid Panel) 06/20/2026 06/20/2021 Cervical Cancer Screening: HPV 03/10/2029 03/10/2024, 06/15/2017 DTaP,Tdap,and Td Vaccines (4 - Td or Tdap) 07/20/2031 07/19/2021, 09/09/2010, 07/28/2009 HIV Screening Completed 03/10/2024, 12/30/2018 Hepatitis C Screening Completed 03/10/2024, 023 Influenza Vaccine Completed 04/07/2024, , 12/06/2021, Additional history exists HIB Vaccines Aged Out No longer eligi ble based on patient's age to complete this topic HPV Vaccines Aged Out No longer eligi ble based on patient's age to complete this topic Hepatitis A Vaccines Aged Out No long er eligible based on patient's age to complete this topic IPV Vaccines Aged Out No longer eligi ble based on patient's age to complete this topic MMR Vaccines Aged Out No longer eligi ble based on patient's age to complete this topic Meningococcal ACWY Vaccine Aged Out N o longer eligible based on patient's age to complete this topic Meningococcal B Vaccine Aged Out No l onger eligible based on patient's age to complete this topic Pneumococcal Vaccine: Pediatrics (0 to 5 Years) and At-Risk Patients (6 to 64 Years) Aged Out No longer eligible based on patient's age to complete this topic RSV Immunization Patients Under 20 months Aged Out No longer eligible based on patient's age to complete this topic Varicella Vaccines Aged Out No longer eligible based on patient's age to complete this topic Procedures Procedure Name Priority Date/Time Associated Diagnosis Comments CHLAMYDIA TRACHOMATIS AND NEISSERIA GONORRHOEAE BY TMA, THINPREP Routine 03/10/2024 11:43 AM EST Women's annual routine gynecological examination PAP SMEAR Routine 03/10/2024 11:43 AM EST Women's annual routine gynecological examination HPV WITH REFLEX GENOTYPE Routine 03/10/2024 11:43 AM EST Women's annual routine gynecological examination TRICHOMONAS VAGINALIS ANTIGEN Routine 03/10/2024 11:43 AM EST Vaginal discharge WET PREP, GENITAL Routine 03/10/2024 11: 43 AM EST Vaginal discharge HEPATITIS C ANTIBODY Routine 03/10/2024 11:32 AM EST Screen for STD (sexually transmitted disease) TREPONEMA PALLIDUM ANTIBODY WITH REFLEX TO RPR AND PARTICLE AGGLUTINATION Routine 03/10/2024 11:32 AM EST Screen for STD (sexually transmitted disease) HIV 1, 2 ANTIBODY, P24 ANTIGEN WITH REFLEX TO DIFFERENTIATION Routine 03/10/2024 11:32 AM EST Screen for STD (sexually transmitted disease) HM DEPRESSION SCREENING Routine 11/25/2023 LIPID PANEL Routine 06/20/2021 from Last 3 Months or Most Recently Relevant to Health Maintenance Results * Chlamydia trachomatis and neisseria gonorrhoeae by tma, thinprep (03/10/2024 11:43 AM EST) N. gonorrhoeae, RNA Probe Negative Negative LAB MICROBIOLOGY METHOD 03/11/2024 1:53 PM EST [facility] Chlamydia, RNA Probe Negative Negative LAB MICROBIOLOGY METHOD 03/11/2024 1:53 PM EST [facility] Brushing/Spatula Cervix uteri structure / Unknown 03/10/2024 11:43 AM EST 03/11/2024 8:10 AM EST us Manda Perez [facility] LAB CYTOLOGY ORDERABLES Fin al Result [facility] [address] [place] [address], [place] [phone] * HPV with reflex genotype (03/10/2024 11:43 AM EST) HPV Negative Negative LAB MICROBIOLOGY METHOD 03/11/2024 2:58 PM EST [facility] Brushing/Spatula Cervix uteri structure / Unknown 03/10/2024 11:43 AM EST 03/11/2024 8:10 AM EST us Manda Perez [facility] MOLECULAR DIAGNOSTICS O RDERABLES Final Result Performing Organization Address City/[facility]/ZIP Co de Phone Number [facility] [address] [place] [address], [place] [phone] * Trichomonas vaginalis antigen (03/10/2024 11:43 AM EST) Trichomonas vaginalis Negative Negative 03/10/2024 6:57 PM EST [facility] Swab Vaginal structure / Unknown Non-blood Collection / Unknown 03/10/2024 11:43 AM EST 03/10/2024 11:43 AM EST us Manda Perez [facility] LAB MICROBIOLOGY - GENERAL ORDERABLES Final Result [facility] [address] [place] [address], [place] [phone] * (ABNORMAL) Wet prep, genital (03/10/2024 11:43 AM EST) Clue Cells, Wet Prep Positive(A) Negative 03/10/2024 6:56 PM EST [facility] Yeast, Wet Prep Negative Negative 03/10/2024 6:56 PM [facility] Trichomonas, Wet Prep Indeterminate Negative 03/10/2024 6:56 PM EST [facility] Comment:Refer to Trichomonas antigen. Swab Vaginal structure / Unknown Non-blood Collection / Unknown 03/10/2024 11:43 AM EST 03/10/2024 11:43 AM EST Manda DYER LAB MICROBIOLOGY - GENERAL ORDERABLES Final Result [facility] [address] [place] [address], * Pap smear (03/10/2024 11:43 AM EST) Interpretation Negative for intraepithelial lesion or malignancy 03/15/2024 3:26 PM [facility] General Categorization Negative 03/15/2024 3:26 PM [facility] Other Findings Shift in shannon suggestive of bacterial vaginosis 03/15/2024 3:26 PM [facility] LMP 01/13/2024 03/15/2024 3:26 PM [facility] Specimen Adequacy Satisfactory for evaluation, endocervical/clemons sformation zone component present 03/15/2024 3:26 PM [facility] Pap Methodology Liquid Based Pap Test 03/15/2024 3:26 PM [facility] Disclaimer The Pap test is a screening test which carries an inherent false negative rate. These test results should be correlated with the patient's clinical findings and history. This Pap test was processed using an automated screening system. Technical cytopathology services provided by [facility], at [address] [place] [address] ([place] # [id number]/Efraín Haley MD, Claims Configuration Analyst.) 03/15/2024 3:26 PM EST [facility] Console Pap Interpretation Reported 03/15/2024 3:26 PM EST [facility] Brushing/Spatula Cervix uteri structure / Unknown 03/10/2024 11:43 AM EST 03/10/2024 11:43 AM EST [facility] ORDERABLES Fin al Result Performing Organization Address City/[facility]/ZIP Co de Phone Number [facility] [address] [place] [address], [place] [phone] * Hepatitis C antibody (03/10/2024 11:32 AM EST) Hepatitis C Antibody Negative Negative LAB CHEMISTRY METHOD 03/10/2024 3:19 PM EST [facility] Blood Venous blood specimen / Unknown Venipuncture / Unknown 03/10/2024 11:32 AM EST 03/10/2024 11:32 AM EST Manda Perez [facility] LAB BLOOD ORDERABLES Final Result [facility] [address] [place] [address], [place] [phone] * HIV 1,2 antibody, p24 antigen with reflex to differentiation (03/10/2024 11:32 AM EST) HIV Combo AB/AG Negative Negative LAB CHEMISTRY METHOD 03/10/2024 3:20 PM EST [facility] Blood Venous blood specimen / Unknown Venipuncture / Unknown 03/10/2024 11:32 AM EST 03/10/2024 11:32 AM EST Narrative [facility] - 03/10/2024 3:20 PM EST This assay is a 4th generation assay allowing for earlier detection of HIV infection by detecting the presence of the HIV-1 p24 antigen as well as the traditional antibodies to HIV type 1 (including group O) and type 2. ??Use of a 4th generation assay is the current CDC recommendation for HIV screening. Manda Perez [facility] LAB BLOOD ORDERABLES Final Result Performing Organization Address [facility]/ZIP Co de Phone Number [facility] [address] [place] [address], [place] [phone] * Treponema pallidum antibody with reflex to RPR and particle agglutination (03/10/2024 11:32 AM EST) [facility] T. Pallidum Antibodies Negative Negative LAB CHEMISTRY METHOD 03/10/2024 2:51 PM EST [facility] Blood Venous blood specimen / Unknown Venipuncture / Unknown 03/10/2024 11:32 AM EST 03/10/2024 11:32 AM EST Manda Perez [facility] LAB BLOOD ORDERABLES Final Result Performing Organization Address [facility]/ZIP Co de Phone Number [facility] [address] [place] [address], [place] [phone] * Depression Screening (11/25/2023) [facility] Depression Screening abstracted [facility] Provider HEALTH MAINTENANCE Final Result * (ABNORMAL) Lipid panel (06/20/2021) [facility] LDL/HDL Ratio 6(A) 0 - 4 Triglycerides 225(A) 0 - 150 mg/dL Cholesterol 154 0 - 200 mg/dL HDL 27(A) >=40 mg/dL LDL Cholesterol 82 0 - 100 mg/dL Blood Venous blood specimen / Unknown us Historical Provider LAB BLOOD ORDERABLES Betty l Result from Last 3 Months or Most Recently Relevant to Health Maintenance Insurance [facility] [address] [place] [address] Care Teams Guitar Maker Hand Relationship Specialty Start Date End Date David Patel MD [address], [place] PCP - General Internal Medicine 07/19/21
--- OUTSIDE RECORDS SUMMARY | 2024-05-26 12:04 | XMS_ITS | Encounter Summary ---
Author Organization [facility] Address [address] [place] [address] Care Team Providers Care Assembler Product Name Role Phone David Patel MD Primary Care Provider + Luis Healy MD Unavailable [phone] Reason for Visit * Reason Onset Date Comments Prior Authorization 10/08/2022 [id number] ch est Encounter Details Date Type Department Care Team Description 10/08/2022 Telephone Cardio [facility] [address] [place] [address] Drive [address] [place] [phone] Luis Healy MD [address] [place] [address] [phone] Prior Authorization ([id number] chest) Social History Tobacco Use Types Packs/Day Years [...] AM EDT documented as of this encounter Miscellaneous Notes * Telephone Encounter - Yoly Rizvi - 10/08/2022 11:54 AM EDT Geovanna auth [id number] Valid 10/08/22-04/06/23 [facility] documented in this encounter Plan of Treatment Not on file documented as of this encounter Visit Diagnoses Not on filedocumented in this encounter Care Teams Assembler Product Relationship Specialty Start Date End Date David Patel MD [address] [place] [id number] PCP - General Internal Medicine 07/19/21 Luis Healy MD [address] [place] [address] [place] [address] Specialist Cardiovascular Disease 07/21/22 documented as of this encounter
--- OUTSIDE RECORDS SUMMARY | 2024-05-26 12:04 | XMS_ITS | Encounter Summary ---
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 Dr. Patel faxed order and notes on one of their patients, so they could be seen with our providers. Patient has been referred to Bariatric DX: Patient is being seen for: weight loss INS: [employer] Please review this patients new referral request. The referral has been pended. Please complete thefollowing: If approved> sign order If denied>please give instructions and route to your practice nursing pool. Practice nurse should inform referrals and the patient if denied. Order is pended * Telephone Encounter - Dot Armstrong - 06/12/2021 2:14 PM EDT What insurance does the patient have today? [facility] / Plan: CC- [facility] TYPE 2 / Product Type: HMO Dte-cek-Fblmzzy Effective 11/09/08: BCBS will not retro referral requests over 90 days. If request is for this please instruct patient to call the 800# on their insurance card to appeal. Do not submit a request. Referrals cannot be processed if the insurance is not accurate. If the insurance listed above in red is NO BILLING INFORMATION FOUND FOR THIS ENCOUTNER The patients correct insurance must be obtained and registered in [facility] or their referral can not be processed. Is this a retro request? NO. If yes for what date of service do you need the retro referral? N/A Who is calling to request this referral? Patient If the caller is not the patient, what is their name? N/A Ask the patient WHO referred them to this specialty: Patient self referred FIRST and LAST NAME of SPECIALIST PATIENT is seeing: What specialty is this? Bariatric DIAGNOSIS Patient is being seen for (Not a body part or a procedure): weight loss Have you seen this SPECIALIST for this PROBLEM/DX before?NO If YES, when: Have you checked REVIEW or the APPT DESK to see if this referral has already been done or has visits left? YES Is this visit:Initial Visit Address of Specialist: [address] [place] [address] Phone # of Specialist:[phone] Fax #: (if applicable): Does patient have an appointment scheduled?: NO Date of appointment- (including a retro-request): Is this appointment related to: Not MVA, WC or Surgery related documented in this encounter Plan of Treatment Not on file documented as of this encounter Visit Diagnoses Not on filedocumented in this encounter Care Teams Select Banker Relationship Specialty Start Date End Date Kesha Joy MD PCP - General Internal Medicine 02/26/21 07/18/21 David Patel MD [address] [place] [id number] PCP - General Internal Medicine 07/19/21 Luis Healy MD [address] [place] [address] [place] [address] Specialist Cardiovascular Disease 07/21/22 documented as of this encounter
--- OUTSIDE RECORDS SUMMARY | 2024-05-26 12:05 | XMS_ITS | Encounter Summary ---
Author Organization [facility] Address [address] [place] [address] Care Team Providers Care Air Intercept Controller Supervisor Name Role Phone David Patel MD Primary Care Provider + Luis Healy MD Unavailable [phone] Reason for Visit * Reason Onset Date Comments Provider Call Back 05/12/2022 Encounter Details Date Type Department Care Team Description 05/12/2022 Telephone General Surgery - [place] [address] [facility] [address] [place] [id number] Kaylin Mitchell MD [address] [phone] Provider Call Back Social History Tobacco Use Types Packs/Day Years [...] suspected to have Coronavirus/COVID-19? Unable to assess 05/13/2022 6:09 AM EDT documented as of this encounter Plan of Treatment Not on file documented as of this encounter Visit Diagnoses Not on filedocumented in this encounter Care Teams Air Intercept Controller Supervisor Relationship Specialty Start Date End Date David Patel MD [address] [place] [id number] PCP - General Internal Medicine 07/19/21 Luis Healy MD [address] [place] [address] [place] [address] Specialist Cardiovascular Disease 07/21/22 documented as of this encounter
--- OUTSIDE RECORDS SUMMARY | 2024-05-26 12:05 | XMS_ITS | Clinical Summary ---
Author Organization [facility] Address [address] [place] [address] Care Team Providers Care Informal Waiter/Waitress Name Role Phone David Patel MD Primary Care Provider + Luis Healy MD Unavailable [phone] Allergies No known active allergies Medications Medication Sig Dispensed Refills Start Date End Date Status fexofenadine (Anna Allergy) 180 MG tablet Take 1 Tablet by mouth daily. 90 Tablet 1 05/18/2023 Active fluticasone 50 MCG/ACT nasal spray 1 spray per nostril twice per day, as needed for nasal congestion 16 g 1 05/18/2023 Active valacyclovir (VALTREX) 500 MG tablet Take 1 Tablet by mouth 2 times daily. 0 Active spironolactone (ALDACTONE) 50 MG tablet Take 1 Tablet by mouth 2 times daily. 0 Active buPROPion (Wellbutrin XL) 150 MG 24 hr tablet Take 1 Tablet by mouth every morning. 30 Tablet 2 11/25/2023 Active nystatin (MYCOSTATIN) powder Apply to affected areas three times daily for up to 14 days 15 g 3 11/25/2023 Active nystatin (MYCOSTATIN) cream Apply to area twice daily for 14 days 30 g 1 11/25/2023 Active Cholecalciferol (Vitamin D) 50 MCG (1999 UT) Tab Take 1 Tablet by mouth daily. 90 Tablet 1 12/11/2023 Active ferrous sulfate 325 (65 Fe) MG tablet Take 1 Tablet by mouth 2 times daily (with meals). 180 Tablet 1 12/15/2023 Active norethindrone-et hinyl estradiol (NECON 1/35, 28,) 1-35 MG-MCG per tablet Take 1 tablet by mouth daily for 360 days. 28 Tab 11 08/09/2019 1 Discontinued Active Problems Problem Noted Date Anxiety 11/25/2023 History of prediabetes 11/25/2023 Chest pain 10/08/2022 Last Assessment & Plan: The patient came [...] for evaluation of the patient's chest pain. Aneurysm of ascending aorta 10/08/2022 Last Assessment & Plan: The patient was [...] any objects weighing more than 35 pounds. Palpitations 10/08/2022 Last Assessment & Plan: The patient has been experiencing episodes of palpitations. We will order a Holter monitor to evaluate for any underlying arrhythmias as a cause of her symptoms. We will also order an echocardiogram to rule out any significant structural heart disease. Abnormal CXR 10/03/2022 Iron deficiency anemia 07/19/2021 Class 2 obesity due to exces s calories with body mass index (BMI) of 37.0 to 37.9 in adult 06/18/2021 Gastroesophageal reflux disease 06/19/19 Vitamin B12 deficiency 03/29/2018 Chronic sinusitis 03/29/2018 Chronic low back pain thoracic and lumba r region 07/18/2011 Resolved Problems Problem Noted Date Resolved Date Depression 03/30/2018 07/19/2021 Immunizations Name Administration Dates Next Due Hepatitis B > 19yrs 11/28/2016,06/11/2016 Influenza (> 6 Months) 01/17/2016,02/18/2013 Influenza Vaccine-preservati ve Free-quadrivalent 4 Years 03/29/2018 PPD-RBMG 11/28/2016,08/03/2014 TD (STATE SUPPLIED FOR ADULTS AND CHILDREN) 07/10 Tdap 09/09/2010 Family History Medical History Relation Name Comments cardiac Father Missing a heart valve Kidney Stones Mother gout, ovarian cancer (age 63) CA Colon Paternal Grandmother CA Breast Negative Hx CA Ovarian Negative Hx Uterine Cancer Negative Hx Relation Name Status Comments Brother Alive [...] Sign Reading Time Taken Comments Blood Pressure 96/61 11/04/2023 2:52 PM EDT Pulse 62 11/04/2023 2:52 PM EDT Temperature 36.2 ??C (97.1 ??F) 04/02/2023 9:53 AM ES T Respiratory Rate 18 11/04/2023 2:52 PM EDT Oxygen Saturation 98% 04/02/2023 9:53 AM EST Inhaled Oxygen Concentration - - Weight 82.6 kg (182 lb) 11/25/2023 2:36 PM EDT Height 157.5 cm (5' 2 ) 11/25/2023 2:36 PM EDT Body Mass Index 33.29 11/25/2023 2:36 PM EDT Plan of Treatment Health Maintenance Due Date Last Done Comments Covid-19 Vaccine (#1) 02/07/1980 MAMMOGRAM 2019 CERVICAL CANCER SCREENING 06/15/20202017, 06/21/2015, 07/10/2010 (External Completion) BASELINE HEALTH EXAM 40-64 01/22/202201/22, 03/29/2018, 03/29/2018, Additional history exists BMI CHECK/ADVISE 02/10/2024 11/04/2023, 11/2021, 06/18/2021, Additional history exists DEPRESSION SCREENING/FOLLOWUP 02/10/2024, 07/19/2021, 01/23/2020, Additional history exists SOCIAL NEEDS SCREENING 02/10/2024 , 01/23/2020, 03/29/2018 (Completed), Additional history exists INFLUENZA (Season Ended) 2024 019, 11/19/2016, 01/17/2016, Additional history exists CHOLESTEROL SCREENING 06/20/2026 06/20/2021 , 03/29/2018, 05/09/2016, Additional history exists DTAP/TDAP/TD (3 - Td or Tdap) 07/20/2031 07/19/2021, 09/09/2010 PNEUMOCOCCAL VACCINE FOR HIG H RISK PATIENTS (#1) 08/07/2044 Care Teams Informal Waiter/Waitress Relationship Specialty Start Date End Date David Patel MD [address] [place] [id number] PCP - General Internal Medicine 07/19/21 Luis Healy MD [address] [place] [address] [place] [address] Specialist Cardiovascular Disease 07/21/22
--- OUTSIDE RECORDS SUMMARY | 2024-05-26 12:05 | XMS_ITS | Encounter Summary ---
Author Organization [facility] Address [address] [place] [address] Care Team Providers Care Metallurgist Helper Name Role Phone Rivka Cage DO Primary Care Pro vider Unavailable Zelalem Mathews MD Primary Care Provider Rivka Hernandez DO Primary Care Pro vider Unavailable Karla Merritt MD Primary Care Provider Unavail able Kesha Joy MD Primary Care Provider David Kumar MD Primary Care Provider + Luis Healy MD Unavailable [phone] Reason for Visit * Reason Onset Date Comments Testing 01/08/2016 Encounter Details Date Type Department Care Team Description 01/08/2016 Telephone Radiology - [address] [address] Yuniel Smiley PA-C Testing Social History Tobacco Use Types Packs/Day [...] encounter Miscellaneous Notes * Telephone Encounter - Flaquita Melissa - 01/08/2016 6:08 PM EST Shiela Frnacisco Javier has not responded to the telephone calls that were made as well as the letter thatwas sent to schedule a SONO ABDOMEN COMPLETE ordered on 04/30/15 Therefore we are removing the test from our Scheduled Orders Report. Please note that this test must be reordered if required in the future. Thank you, Radiology documented in this encounter Plan of Treatment Not on file documented as of this encounter Visit Diagnoses Not on filedocumented in this encounter Care Teams Metallurgist Helper Relationship Specialty Start Date End Date Rivka Cage DO PCP - General Internal Medicine 09/03/15 08/08/19 Zelalem Mathews MD PCP - General Internal Medicine 08/09/19 08/31/19 Rivka Cage DO PCP - General Internal Medicine 09/01/19 08/22/20 Karla Merritt MD PCP - General Internal Medicine 08/23/20 02/25/21 Kesha Joy MD PCP - General Internal Medicine 02/26/21 07/18/21 David Patel MD [address] [place] [id number] PCP - General Internal Medicine 07/19/21 Luis Healy MD [address] [place] [address] [place] [address] Specialist Cardiovascular Disease 07/21/22 documented as of this encounter
--- OUTSIDE RECORDS SUMMARY | 2024-05-26 12:05 | XMS_ITS | Encounter Summary ---
Author Organization [facility] Address [address] [place] [address] Care Team Providers Care Milling Machine Tender Name Role Phone David Patel MD Primary Care Provider + Luis Healy MD Unavailable [phone] Encounter Details Date Type Department Care Team Description 12/10/2021 Telephone Adult Medicine [address] [address] David Patel MD [address] [place] [address] [id number] Social History Tobacco Use Types Packs/Day Years [...] on filedocumented in this encounter Care Teams Milling Machine Tender Relationship Specialty Start Date End Date David Patel MD [address] [place] [address] [phone] PCP - General Internal Medicine 07/19/21 Luis Healy MD [address] [place] [address] [place] [address] Specialist Cardiovascular Disease 07/21/22 documented as of this encounter
--- OUTSIDE RECORDS SUMMARY | 2024-05-26 12:05 | XMS_ITS | Encounter Summary ---
Author Organization [facility] Address [address] [place] [address] Care Team Providers Care Cabinetmaker Apprentice Name Role Phone David Patel MD Primary Care Provider + Luis Healy MD Unavailable [phone] Encounter Details Date Type Department Care Team Description 06/12/2022 SCAN Medical Records [address] [place] [id number] Abstract, Provider Social History Tobacco Use Types [...] suspected to have Coronavirus/COVID-19? No / Unsure 06/09/2022 10:03 AM EDT documented as of this encounter Plan of Treatment Not on file documented as of this encounter Procedures Procedure Name Priority Date/Time Associated Diagnosis Comments OUTSIDE PLAIN FILM Routine 06/12/2022 documented in this encounter Results * OUTSIDE PLAIN FILM (06/12/2022) Provider Abstract RADIOLOGY documented in this encounter Visit Diagnoses Not on filedocumented in this encounter Care Teams Cabinetmaker Apprentice Relationship Specialty Start Date End Date David Patel MD [address] [place] [address] [phone] PCP - General Internal Medicine 07/19/21 Luis Healy MD [address] [place] [address] [place] [address] Specialist Cardiovascular Disease 07/21/22 documented as of this encounter
--- OUTSIDE RECORDS SUMMARY | 2024-05-26 12:05 | XMS_ITS | Data Portability ---
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 History Nothing Reported. Medical History No medical history recorded. Gynecological HistoryNo gynecological history recorded. Obstetrics History GPAL:G 0 P 0 0 0 0 Past Encounters Encounter ID Performer Location Encounter Start Date Encounter Closed Date Diagnosis/Indication Diagnosis SNOMED-CT Code Diagnosis ICD10 Code Diagnosis Note [id number] [facility], OFFICE [address] [place] [address] 03/06/2000 15:45:00 03/01/2008 02:02:29 [id number] [facility] [address] [place] [address] 07/30/2000 17:45:00 03/01/2008 02:02:29 [id number] [facility], [place]ICE [address] [place] [address] 08/21/2000 09:00:00 03/01/2008 02:02:29 [id number] [facility], OFFICE [address] [place], [place] [address] 12/01/2000 14:00:00 03/01/2008 02:02:29 [id number] [facility], OFFICE [address] [place], [place] [address] 03/09/2001 17:00:00 03/01/2008 02:02:29 [id number] [facility], OFFICE [address] [place], [place] [address] 07/14/2001 09:49:06 03/01/2008 02:02:29 [id number] [facility], OFFICE [address] [place], [place] [address] 09/13/2001 16:52:40 03/01/2008 02:02:29 [id number] [facility], OFFICE [address] [place], [place] [address] 09/29/2001 16:53:31 03/01/2008 02:02:29 [id number] [facility], OFFICE [address], [place] [address] 11/19/2001 14:41:09 03/01/2008 02:02:29 [id number] [facility], OFFICE [address] [place], [place] [address] 03/23/2003 13:56:33 03/23/2003 16:10:43 [id number] [facility], OFFICE [address] [place], [place] [address] 06/27/2003 12:54:16 06/28/2003 08:55:04 [id number] LAB - [facility] [address] [place] [address] 09/08/2003 12:17:19 09/08/2003 12:28:19 [id number] [facility], OFFICE [address] [place], [place] [address] 09/08/2003 11:28:16 09/11/2003 09:14:36 [id number] LAB - [facility] [address] [place] [id number] 09/29/2003 16:00:51 09/29/2003 16:01:09 [id number] [facility], OFFICE [address] [place] [address] 09/29/2003 15:16:42 10/02/2003 10:01:44 [id number] FP, [facility], OFFICE [address] [place] [id number] 10/02/2003 12:06:55 10/03/2003 17:20:40 [id number] [facility], [place] [address] 10/24/2003 15:41:42 10/26/2003 09:23:45 [id number] [facility], [place] [address] 12/18/2003 12:27:40 12/19/2003 09:13:08 [id number] [facility], [address] [place] [address] 02/16/2004 14:46:53 02/16/2004 17:50:42 [id number] [facility], [place]ICE [place] [address] 1 04/01/2004 10:32:45 04/04/2004 17:40:43 [id number] [facility], [place] [address] [address] [place] [address] 07/09/2004 10:55:36 07/10/2004 08:23:05 [id number] [facility], OFFICE [address] [place] [address] [place] [address] 10/10/2004 10:11:59 10/11/2004 09:38:02 [id number] [facility] - [address] [place] [address] 10/10/2004 14:36:06 10/10/2004 14:36:56 [id number] [facility], [place] [address] [address] [place] [id number] 10/23/2004 17:02:40 10/25/2004 14:45:35 [id number] [facility], [place] [address] [address] [place] [address] 05/12/2005 15:21:38 05/13/2005 09:54:37 [id number] [facility], [place] [address] [address] [place] [id number] 1 08/22/2005 09:58:34 08/22/2005 14:12:54 [id number] Eye [facility] [place], [facility] [address] [place] [address] 12/08/2005 10:31:44 12/08/2005 13:01:56 [id number] Optical, [facility] [address] [place] [id number] 12/08/2005 11:10:30 12/08/2005 17:00:15 [id number] [facility], OFFICE [address] [place] [address] 01/05/2006 17:13:55 01/06/2006 08:40:43 [id number] [facility], OFFICE [address] [place] [address] 04/06/2006 11:11:30 04/06/2006 12:36:15 [id number] [facility] - [facility] [address] [place] [id number] 04/06/2006 13:19:35 04/06/2006 13:19:48 [id number] [facility] - [facility] [address] [place] [address] 05/22/2006 16:30:36 05/22/2006 16:30:52 [id number] [facility], OFFICE [address] [place] [address] 1 05/22/2006 15:35:31 05/25/2006 07:48:48 [id number] [facility], OFF[address] [place] [address] 06/26/2006 08:04:21 06/26/2006 10:05:31 [id number] [facility], OFFICE [address] [place] [address] 08/25/2006 08:07:20 08/26/2006 08:30:33 [id number] [facility], OFF[address] [place] [address] 09/08/2006 13:02:01 09/08/2006 16:39:25 [id number] [facility], OFFICE [address] [place] [address] 09/15/2006 14:03:17 09/21/2006 07:47:32 [id number] [facility], OFFICE [address] [place] [address] 11/23/2006 11:57:43 11/25/2006 11:18:12 [id number] [facility] [address] [place] [address] 11/23/2006 13:02:34 11/23/2006 13:02:50 [id number] [facility], OFFICE [address] [place] [address] 03/18/2007 15:15:51 03/01/2008 02:02:29 [id number] [facility] [address] [place] [id number] 04/12/2007 10:53:29 04/12/2007 16:46:40 [id number] Eye [facility] [place], [facility] [address] [place] [address] 04/12/2007 09:43:55 04/12/2007 13:32:35 [id number] [facility], OFFICE [address] [place] [address] 1 06/03/2007 08:53:39 03/01/2008 02:02:29 [id number] [facility] - [facility] [address] [place] [address] 1 06/03/2007 09:47:50 06/03/2007 09:47:58 [id number] [facility] [address] [place] [address] 1 06/07/2007 11:41:10 06/07/2007 11:41:17 [id number] [facility], OFFICE [address] [place] [address] 1 06/09/2007 16:52:04 06/14/2007 13:23:06 [id number] [facility], OFFICE [address] [place] [address] 1 09/28/2007 12:45:50 03/01/2008 02:02:29 [id number] [facility] [address] [place] [address] 1 09/28/2007 13:53:41 09/28/2007 13:53:49 [id number] [facility] - [facility] [address] [place] [address] 09/28/2007 00:00:00 03/01/2008 02:02:29 [id number] [facility], OFFICE [address] [place] [address] 1 11/23/2007 16:24:41 03/01/2008 02:02:29 [id number] [facility] - [facility] [place] [address] 11/24/2007 09:22:08 11/24/2007 09:22:15 [id number] [facility], OFFICE [address] [place] [address] 1 05/10/2008 09:34:59 05/15/2008 12:06:29 [id number] [facility], OFFICE [address] [place] [id number] 08/02/2008 15:45:01 08/07/2008 10:57:39 [id number] FP, [facility], OFF[address] [place] [address] 1 10/26/2008 14:36:45 10/27/2008 10:10:35 [id number] Physical Therapy, [facility] [address] [place] [address] 05/10/2008 15:00:25 05/10/2008 15:00:31 [id number] LAB - [facility] [address] [place] [address] 08/03/2008 06:46:50 08/03/2008 06:47:04 [id number] LAB - [facility] [address] [place] [address] 10/26/2008 15:43:52 10/26/2008 15:44:50 Health Concerns Section Related Observation LastModified by Organization Detai ls LastModified Time None Recorded Concern Status LastModified by Organization Details LastModified Time None Recorded Advance Directives Directive None Recorded Payers Encounter Date Sequence Insurance Name Policy Number Policy Call Covered Member ID Call Member ID Guarantor Name 05/10/2008 1 [facility] [employer] PL[employer] (MEDICAID HMO) Shiela Mcintyre [id number] Shiela Mcintyre 05/10/2008 2 [place] [facility] Shiela Mcintyre [id number] Shiela Mcintyre 08/02/2008 1 [facility] [employer] [facility] PLAN (MEDICAID HMO) Shiela Mcintyre [id number] Shiela Mcintyre 08/02/2008 2 [place] [facility] Shiela Mcintyre [id number] Shiela Mcintyre 08/03/2008 1 [facility] [employer] [facility] PLAN (MEDICAID HMO) Shiela Mcintyre [id number] Shiela Mcintyre 08/03/2008 2 [place] [facility] Shiela Mcintyre [id number] Shiela Mcintyre 10/26/2008 1 [facility] [employer] [facility] PLAN (MEDICAID HMO) Shiela Mcintyre [id number] Shiela Mcintyre 10/26/2008 2 [place] [facility] Shiela Mcintyre [id number] Shiela Mcintyre 10/26/2008 1 [facility] [employer] [facility] PLAN (MEDICAID HMO) Shiela Mcintyre [id number] Shiela Mcintyre 10/26/2008 2 [place] [facility] Shiela Mcintyre [id number] Shiela Mcintyre Notes Date Note Type Note Provider Name and Address Organization Details Recorded Time 10/26/2008 text/html InitializeSe ction( this.parentImelda gonzalez, 1 ); this.removeN lisa(true)HPI None recorded. Judith Martínez MD [address] [place] [address], [place], [address], [facility] 10/28/2008 20:19:00 OBGyn Episode No OBEpisode recorded.
--- OUTSIDE RECORDS SUMMARY | 2024-05-26 12:05 | XMS_ITS | Encounter Summary ---
Author Organization [facility] Address [address] [place] [address] Care Team Providers Care Aircraft Refueler Name Role Phone Rivka Cage DO Primary Care Pro vider Unavailable Zelalem Mathews MD Primary Care Provider Rivka Hernandez DO Primary Care Pro vider Unavailable Karla Merritt MD Primary Care Provider Unavail able Kesha Joy MD Primary Care Provider David Kumar MD Primary Care Provider + Luis Healy MD Unavailable [phone] Reason for Visit * Reason Onset Date Comments injection 02/05/2017 Hep B #3 Encounter Details Date Type Department Care Team Description 02/05/2017 Telephone Adult [address] [address] Rivka Cage DO injection (Hep B #3) Social History Tobacco Use Types Packs/Day Years [...] encounter Miscellaneous Notes * Telephone Encounter - Lexie Multani M.A. - 02/05/2017 1:45 PM EST Message left asking pt to call our office back to schedule her Hep B #3 injection documented in this encounter Plan of Treatment Not on file documented as of this encounter Visit Diagnoses Not on filedocumented in this encounter Care Teams Aircraft Refueler Relationship Specialty Start Date End Date Rivka Cage DO PCP - General Internal Medicine 09/03/15 08/08/19 Zelalem Mathews MD PCP - General Internal Medicine 08/09/19 08/31/19 Rivka Cage DO PCP - General Internal Medicine 09/01/19 08/22/20 Karla Merritt MD PCP - General Internal Medicine 08/23/20 02/25/21 Kesha Joy MD PCP - General Internal Medicine 02/26/21 07/18/21 David Patel MD [address] [place] [address] PCP - General Internal Medicine 07/19/21 Luis Healy MD [address] [place] [address] [place] [address] Specialist Cardiovascular Disease 07/21/22 documented as of this encounter
--- OUTSIDE RECORDS SUMMARY | 2024-05-26 12:05 | XMS_ITS | Encounter Summary ---
Author Organization [facility] Address [address] [place] [address] Care Team Providers Care Air Pollution Control Engineer Name Role Phone Rivka Cage DO Primary Care Pro vider Unavailable Zelalem Mathews MD Primary Care Provider Rivka Hernandez DO Primary Care Pro vider Unavailable Karla Merritt MD Primary Care Provider Unavail able Kesha Joy MD Primary Care Provider David Kumar MD Primary Care Provider + Luis Healy MD Unavailable [phone] Reason for Visit * Reason Onset Date Comments Appointment-Internal Referral 09/18/2016 [email or web address] Encounter Details Date Type Department Care Team Description 09/18/2016 Telephone Dermatology - [address] [address] Yoon Larry PA-C Appointment-Internal Referral (derm) Social History Tobacco Use Types Packs/Day Years [...] encounter Miscellaneous Notes * Telephone Encounter - Rosa Bey - 09/18/2016 8:19 AM EDT I have been unable to reach this patient by phone. A letter is being sent. documented in this encounter Plan of Treatment Not on file documented as of this encounter Visit Diagnoses Not on filedocumented in this encounter Care Teams Air Pollution Control Engineer Relationship Specialty Start Date End Date Rivka Cage DO PCP - General Internal Medicine 09/03/15 08/08/19 Zelalem Mathews MD PCP - General Internal Medicine 08/09/19 08/31/19 Rivka Cage DO PCP - General Internal Medicine 09/01/19 08/22/20 Karla Merritt MD PCP - General Internal Medicine 08/23/20 02/25/21 Kesha Joy MD PCP - General Internal Medicine 02/26/21 07/18/21 David Patel MD [address] [place] [address] PCP - General Internal Medicine 07/19/21 Luis Healy MD [address] [place] [address] [place] [address] Specialist Cardiovascular Disease 07/21/22 documented as of this encounter
--- OUTSIDE RECORDS SUMMARY | 2024-05-26 12:05 | XMS_ITS | Encounter Summary ---
Author Organization [facility] Address [address] [place] [address] Care Team Providers Care Parts Administrator Name Role Phone Rivka Cage DO Primary Care Pro vider Unavailable Zelalem Mathews MD Primary Care Provider Rivka Hernandez DO Primary Care Pro vider Unavailable Karla Merritt MD Primary Care Provider Unavail able Kesha Joy MD Primary Care Provider David Kumar MD Primary Care Provider + Luis Healy MD Unavailable [phone] Encounter Details Date Type Department Care Team Description 03/30/2018 Orders Only Adult Medicine [address] [address] Juana Pritchett PA-C Social History Tobacco Use Types Packs/Day Years [...] on filedocumented in this encounter Care Teams Parts Administrator Relationship Specialty Start Date End Date Rivka Cage DO PCP - General Internal Medicine 09/03/15 08/08/19 Zelalem Mathews MD PCP - General Internal Medicine 08/09/19 08/31/19 Rivka Cage DO PCP - General Internal Medicine 09/01/19 08/22/20 Karla Merritt MD PCP - General Internal Medicine 08/23/20 02/25/21 Kesha Joy MD PCP - General Internal Medicine 02/26/21 07/18/21 David Patel MD [address] [place] [address] PCP - General Internal Medicine 07/19/21 Luis Healy MD [address] [place] [address] [place] [address] Specialist Cardiovascular Disease 07/21/22 documented as of this encounter
--- OUTSIDE RECORDS SUMMARY | 2024-05-26 12:05 | XMS_ITS | Encounter Summary ---
Author Organization [facility] Address [address] [place] [address] Care Team Providers Care Processing Tech Name Role Phone David Patel MD Primary Care Provider + Luis Healy MD Unavailable [phone] Encounter Details Date Type Department Care Team Description 08/11/2022 Telephone Gastroenterology [facility] [address] [facility] [address] [place] [address] Jazmyn Crandall DScPAS Social History Tobacco Use Types Packs/Day Years [...] suspected to have Coronavirus/COVID-19? No / Unsure 07/30/2022 11:18 AM EDT documented as of this encounter Plan of Treatment Not on file documented as of this encounter Visit Diagnoses Not on filedocumented in this encounter Care Teams Processing Tech Relationship Specialty Start Date End Date aDvid Patel MD [address] [place] [address] PCP - General Internal Medicine 07/19/21 Luis Healy MD [address] [place] [address] [address] [place], [place] [id number] Specialist Cardiovascular Disease 07/21/22 documented as of this encounter
--- OUTSIDE RECORDS SUMMARY | 2024-05-26 12:05 | XMS_ITS | Encounter Summary ---
Author Organization [facility] Address [address] [place] [address] Care Team Providers Care Central Supply Aide Name Role Phone David Patel MD Primary Care Provider + Luis Healy MD Unavailable [phone] Reason for Visit * Reason Onset Date Comments Advice 06/16/2022 Insurance change d Encounter Details Date Type Department Care Team Description 06/16/2022 Telephone Bariatric Surgery - [place] [address] [place] [address] Kaylin Mitchell MD [address] [place] [address] Advice (Insurance changed) Social History Tobacco Use Types Packs/Day Years [...] Miscellaneous Notes * Telephone Encounter - Flaquita Vidal German - 06/17/2022 10:29 AM EDT She's all set - auth still good - thank you for the heads up. * Telephone Encounter - Eleonora Edd - 06/16/2022 3:46 PM EDT I noticed today that this patients insurance was changed. I did fix it but not sure if it's going to mess with her approval. It is still a [employer] plan. documented in this encounter Plan of Treatment Not on file documented as of this encounter Visit Diagnoses Not on filedocumented in this encounter Care Teams Central Supply Aide Relationship Specialty Start Date End Date David Patel MD [address] [place] [address] PCP - General Internal Medicine 07/19/21 Luis Healy MD [address] [place] [address] [place] [address] Specialist Cardiovascular Disease 07/21/22 documented as of this encounter
--- OUTSIDE RECORDS SUMMARY | 2024-05-26 12:05 | XMS_ITS | Encounter Summary ---
Author Organization [facility] Address [address] [place] [address] Care Team Providers Care Evening Or Night Nurse Supervisor Name Role Phone Rivka Cage DO Primary Care Pro vider Unavailable Zelalem Mathews MD Primary Care Provider Rivka Hernandez DO Primary Care Pro vider Unavailable Karla Merritt MD Primary Care Provider Unavail able Kesha Joy MD Primary Care Provider David Kumar MD Primary Care Provider + Luis Healy MD Unavailable [phone] Encounter Details Date Type Department Care Team Description 05/16/2016 Night Triage Doc Medical Records [address] [place] [id number] Abstract, Provider Social History Tobacco Use Types [...] on filedocumented in this encounter Care Teams Evening Or Night Nurse Supervisor Relationship Specialty Start Date End Date Rivka Cage DO PCP - General Internal Medicine 09/03/15 08/08/19 Zelalem Mathews MD PCP - General Internal Medicine 08/09/19 08/31/19 [place], Rivka, DO PCP - General Internal Medicine 09/01/19 08/22/20 Karla Merritt MD PCP - General Internal Medicine 08/23/20 02/25/21 Kesha Joy MD PCP - General Internal Medicine 02/26/21 07/18/21 David Patel MD [address] [place] [id number] PCP - General Internal Medicine 07/19/21 Luis Healy MD [address] [place] [address] [place] [address] Specialist Cardiovascular Disease 07/21/22 documented as of this encounter
--- OUTSIDE RECORDS SUMMARY | 2024-05-26 12:05 | XMS_ITS | Encounter Summary ---
Author Organization [facility] Address [address] [place] [address] Care Team Providers Care Mobile Equipment Servicer Name Role Phone David Patel MD Primary Care Provider + Luis Healy MD Unavailable [phone] Encounter Details Date Type Department Care Team Description 08/06/2021 Hospital Medical Records [address] [place] [address] Lainey Serrano MD [address] [place] [id number] Social History Tobacco Use Types Packs/Day Years [...] suspected to have Coronavirus/COVID-19? No / Unsure 07/19/2021 8:41 AM EDT documented as of this encounter Plan of Treatment Not on file documented as of this encounter Visit Diagnoses Not on filedocumented in this encounter Care Teams Mobile Equipment Servicer Relationship Specialty Start Date End Date David Patel MD [address] [place] [address] [id number] PCP - General Internal Medicine 07/19/21 Luis Healy MD [address] [place] [address] [address] [place] [address] Specialist Cardiovascular Disease 07/21/22 documented as of this encounter
--- OUTSIDE RECORDS SUMMARY | 2024-05-26 12:05 | XMS_ITS | Encounter Summary ---
Author Organization [facility] Address [address] [place] [id number] Care Team Providers Care Catering Server Name Role Phone David Patel MD Primary Care Provider + Luis Healy MD Unavailable [phone] Encounter Details Date Type Department Care Team Description 06/13/2022 Orders Only Medical Records [address] [place] [address] Kaylin Mitchell MD [address] [place] [phone] Social History Tobacco Use Types Packs/Day Years [...] Recorded In the last 10 days, have pio u been in contact with someone who was confirmed or suspected to have Coronavirus/COVID-19? No / Unsure 06/09/2022 10:03 AM EDT documented as of this encounter Plan of Treatment Not on file documented as of this encounter Procedures Procedure Name Priority Date/Time Associated Diagnosis Comments OUTSIDE PLAIN FILM Routine 06/12/2022 documented in this encounter Results * OUTSIDE PLAIN FILM (06/12/2022) Kaylin Mitchell MD RADIOLOGY documented in this encounter Visit Diagnoses Not on filedocumented in this encounter Care Teams Catering Server Relationship Specialty Start Date End Date David Patel MD [address] [place] [id number] PCP - General Internal Medicine 07/19/21 Luis Healy MD [address] [place] [address] [place] [address] Specialist Cardiovascular Disease 07/21/22 documented as of this encounter
== END 2024-05-26 11:27 | disposition home or self-care (01) ==
LOC: HO.HMCC 10:13
PROVIDERS: Visit Provider Internal Medicine
DX: F41.9 Anxiety disorder, unspecified (principal); F32.A Depression, unspecified; N89.8 Other specified noninflammatory disorders of vagina

== ENCOUNTER → 2024-05-26 10:13 | Outpatient (BNVA) | payer OTHER, SELFPAY | PROVIDERS: Visit Provider Internal Medicine | DX: F41.9 Anxiety disorder, unspecified (principal); F32.A Depression, unspecified; N89.8 Other specified noninflammatory disorders of vagina | CPT/HCPCS: 96127 ==

== ENCOUNTER 2024-08-25 13:52 | Outpatient (AMB) | payer OTHER, SELFPAY ==
[2024-08-25 14:28] VITALS: BP 90/60; PULSE 71; TEMP 36.7; O2SAT 98; BMI 31.3
--- NOTE | 2024-08-25 14:28 | AM.OFFWIN_ITS ---
Intake Vital Signs 08/25/24 14:28 Height 5 ft 2 in Weight 171 lb BMI 31.3 BP 90/60 Blood Pressure Location Lt brachial Position Sitting Pulse 71 Pulse Source Pulse Oximeter Temp 98.1 F Temp Source Oral Pulse Oximetry (%) 98 Oxygen Delivery Method Room Air Intake Visit Reasons: EP sore throat Intake Note: presents with sore throat, pain swallowing for 4 days Patient Tobacco Use Status: Never used Tobacco Allergies No Known Allergies Allergy (Verified 08/25/24 14:32) Medication List - Last Reconciled 08/25/24 by Arlyn Ervin PA-C bupropion HCl XL 300 mg PO QAM cholecalciferol (vitamin D3) 50 mcg PO DAILY esomeprazole magnesium 40 mg PO DAILY fluconazole 150 mg PO Q3D 2 doses ondansetron 4 mg PO Q8H simethicone 80 mg PO BID-QID PRN spironolactone 50 mg PO BID valacyclovir 500 mg PO BID PRN Do you need a note to return to daycare/school/sports/work: No HPI HPI Comments History of Present Illness Details History - The patient is a 44-year-old female pr esenting with a sore throat, headache, and cough. - The sore throat began with pain on swa llowing and has progressively worsened. - The patient reports associated symptom s of headache and a mild cough. - She has not measured her temperature b ut has not noticed any fever. - Swelling in the neck was noted, sugges tive of lymphadenopathy. - A rapid strep test was conducted and r eturned negative, but clinical suspicion for streptococcal pharyngitis remains high. - The patient has no known exposure to s trep throat and denies ear or sinus pain. Physical Exam General: Cooperative, healthy appearing, comfortable and no acute distress Orientation/consciousness: Patient oriented x3 Limitations: No limitations Head: Normal to inspection, but reports headache Ears: Hearing grossly normal bilaterally, external ears normal and TM's normal bilaterally Nose: Normal external nose present, Normal nares present and No nasal discharge present Face and sinus: Normal facial exam, but reports sinus tenderness Mouth: Normal oral and palatal mucosa present and moist mucous membranes Throat: Yes tonsils normal, Yes uvula midline. Posterior oropharynx erythema, no exudates but throat is red Eyes: Appearance normal, both eyes and all related structures Neck: Normal visual inspection, full ROM, but reports swollen lymph nodes Respiratory: Clear to auscultation bilaterally. Normal respiratory effort, able to speak in complete sentences, Actively coughing, no respiratory distress, not tachypneic, no tripod positioning and no use of accessory muscles Cardiovascular: Regular rate and rhythm. Normal S1 and S2 Skin: No rashes or lesions noted Neuro: Patient oriented x3 Extremities: Normal to inspection and Yes no clubbing, cyanosis or edema PFSH Medical History (Updated 08/25/24 @ 14:55 by Arlyn Ervin PA-C) Chronic GERD History of Davis's esophagus Anxiety and depression Hidradenitis suppurativa History of herpes genitalis Surgical History (Updated 05/26/24 @ 11:07 by Kamala Shah MD) Hx of colonoscopy History of esophagogastroduodenoscopy (EGD) History of Hx of breast reduction, elective History of sleeve gastrectomy Family History (Updated 05/26/24 @ 11:03 by Kamala Shah MD) Father Mental health disorder Mother Ovarian cancer, Onset Age: 60 Chronic kidney disease, stage 4 (severe) Essential hypertension Osteoarthritis Social History (Updated 05/26/24 @ 11:18 by Kamala Shah MD) Housing: House Alcohol intake: current Alcohol intake frequency: holidays/special occasions only Alcohol type: wine Patient Tobacco Use Status: Never used Tobacco e-Cigarette/Vaping Use: Never Used service: No Current occupational status: employed Cognitive needs: No Hearing needs: No Vision needs: Yes Review of Systems Const All systems reviewed & are unremarkable except as noted in HPI and below Physical Exam Vital Signs: Last Vital Signs Temp 98.1 F 08/25/24 14:28 Pulse 71 08/25/24 14:28 BP 90/60 08/25/24 14:28 Pulse Ox 98 08/25/24 14:28 Oxygen Delivery Method Room Air 08/25/24 14:28 BMI result Body Mass Index 31.3 Results AMB Rapid Strep AMB Rapid Strep Negative Last Edit by Manda Bhandari MA on 08/25/24 14:43 Results Reviewed Results Reviewed: Laboratory Last Values Strep Scn Rapid Clinic Negative 08/25/24 14:39 Assessment & Plan Assessment & Plan (1) Strep pharyngitis: Code(s): J02.0 - Streptococcal pharyngitis Plan: Plan - VSS, pt well appearing and PE remarkable for swollen and erythematous tonsils. - Centor score 3, 28-35% of having strep, will treat as such. - Initiate treatment with amoxicillin for 10 days due to high clinical suspicion of streptococcal pharyngitis despite negative rapid test. - Conduct a combined swab for influenza, COVID-19, and RSV to rule out viral infections. - Advise the patient to avoid sharing utensils or close contact to prevent poten tial spread of infection. - Follow-up on test results via patient portal or phone call, and adjust treatment if necessary based on results. Patient was informed and verbally consented to the use of an ambient scribe for clinic note documentation during this visit Orders: Orders AMB Rapid Strep Screen Today Z13.9 - Encounter for screening, unspecified SARS-CoV2/FLU/RSV Today R09.89 - Other specified symptoms and signs involving the circulatory and respiratory systems Medications: New amoxicillin 500 mg PO Q12H 20 tabs 0RF Coding Level of Care Code Est Pt Level 3 (72634) Diagnoses Strep pharyngitis J02.0
--- OUTSIDE RECORDS SUMMARY | 2024-08-25 14:35 | XMS_ITS | Clinical Summary ---
Author Organization [address] [place] [address] [place] [phone] Phone Care Team Providers Care Program Research Specialist Name Role Phone David Patel MD [...] day. Active esomeprazole (NexIUM) [address] Napoles ons:Gastroesoph ageal reflux disease, unspecified whether esophagitis present Take 1 capsule (40 mg total) by mouth 1 (one) time each day before breakfast. Do not open capsule. 30 each 01/27/20 24 Active simethicone (MYLICON) 80 mg chewable tablet Chew 1 tablet (80 mg total) every 6 (six) hours if needed for flatulence. 90 tablet 3 01/27/20 Active Additional Information Patient not taking.Reported on 07/27/2024 ergocalciferol (VITAMIN D-2) 1,250 mcg (50,000 unit) capsule Take 1 capsule (50,000 Units total) by mouth 1 (one) time per week. 12 each 01/27/20 24 025 Active Additional Information Patient not taking.Reported on 07/27/2024 etonogestreL-et hinyl estradioL (NUVARING) 0.12-0.015 mg/24 hr vaginal ring Insert 1 each into the vagina every 28 (twenty-eight) days. Insert vaginally and leave in place for 3 consecutive weeks, then remove for 1 week. 3 each 3 03/10/19 25 026 Active Additional Information Patient not taking.Reported on 07/27/2024 magnesium, amino acid chelate, 133 mg tablet Take 1 tablet (133 mg total) by mouth 2 (two) times a day. Active cyclobenzaprine (FLEXERIL) 10 mg tablet Take 1 tablet (10 mg total) by mouth every 8 (eight) hours if needed for muscle spasms for up to 30 doses. 30 each 07/19/19 25 Active cetirizine (ZyrTEC) 10 mg tablet Take 1 tablet (10 mg total) by mouth 1 (one) time each day. 30 each 08/09/19 25 026 Active nystatin (MYCOSTATIN) cream Apply to area twice daily for 14 days 11/25/19 24 Discontinued oxyCODONE-aceta minophen (PERCOCET) 5-325 mg per tablet Take 1 tablet by mouth every 6 (six) hours if needed for severe pain for up to 8 days. Max Daily Amount: 8 tablets 30 tablet 07/19/19 25 025 Additional Information Patient not taking.Reported on 07/27/2024 cephalexin (KEFLEX) 500 mg capsule Take 1 capsule (500 mg total) by mouth 4 (four) times a day for 14 days. 56 each 07/19/19 25 025 docusate sodium (COLACE) 100 mg capsule Take 1 capsule (100 mg total) by mouth 2 (two) times a day for 15 days. 30 each 07/19/19 25 025 Active Problems Problem Noted Date Diagnosed Date S/P panniculectomy 2024 Excess skin 05/02/2024 Rash 05/02/2024 Intertrigo 05/02/2024 Abdominal pannus 05/02/2024 Family history of ovarian cancer 03/10/2024 Overview (03/10/2024): Pt has tested BRCA neg Anxiety 11/25/2023 Chest pain 10/08/2022 Overview (12/18/2023): Last Assessment [...] Low back pain 05/10/2008 Acquired hypothyroidism 03/06/2000 Resolved Problems Problem Noted Date Diagnosed Date Resolved Date Aneurysm of ascending aorta ([facility] V24) 10/08/2022 08/02/2024 Overview (12/18/2023): Last Assessment & Plan: The [...] any objects weighing more than 35 pounds. Encounters Date Type Department Care Team Description 08/15/2024 10:00 AM EDT Office Visit Plastic & Reconstructive Surgery [address] [phone] Vivienne Garcia PA S/P panniculectomy (Primary Dx) 2024 8:30 AM EDT Office Visit Plastic & Reconstructive Surgery [address] [phone] Lázaro Price PA S/P panniculectomy (Primary Dx) 08/07/2024 Telephone Plastic & Reconstructive Surgery [address] [phone] Lázaro Price PA 08/06/2024 9:49 PM EDT - 08/07/2024 12:[address] [facility] [address] [place] [phone] Discharge Disposition: Home or Self Care 08/06/2024 Telephone Plastic & Reconstructive Surgery [facility] [address] [facility] [address] [place] [phone] Sarah Priceh [place] 08/03/2024 Telephone [facility] [place] [address] [place] [phone] Sarah Priceh [place] 08/02/2024 1:48 PM EDT Anesthesia Event [facility] [place] [address] [place] [phone] Stoney Vásquez DO 08/02/2024 1:00 PM EDT - 08/02/2024 3:30 PM EDT Surgery [facility] [place] [address] [place] [phone] Terrence Guzman DO PANNICULECTOMY [89895 (CPT )] 08/02/2024 11:34 AM EDT - 08/02/2024 5:40 PM EDT Hospital Encounter [facility] [place] [address] [place] [phone] Terrence Guzman DO Excess skin; Abdominal pannus Discharge Disposition: Home or Self Care 07/26/2024 Telephone General Surgery [facility] [address] [facility] [address] [place] [phone] Terrence Guzman DO FORM FMLA (07/26/24 receive Fmla) 07/18/2024 3:00 PM EDT Consult Plastic & Reconstructive Surgery [facility] [address] [facility] [address] [place] [phone] Terrence Guzman DO Rash (Primary Dx); Intertrigo; Abdominal pannus 07/01/2024 9:45 AM EDT Office Visit Obstetrics & Gynecology - [address] [phone] Migdalia Sarkar CNM Acute vaginitis (Primary Dx); Screen for STD (sexually transmitted disease); Vulvar lesion; Hidradenitis suppurativa; Skin eruption from Last 3 Months Immunizations Name Administration Dates Next Due Hepatitis B (Jehogle-B-Sfupc , Recombivax HB-Adult) 19yo and older 11/28/2016,06/11/2016 Hepatitis B Pediatric (Enger ix B; Recombivax HB) to less than 20 yo 10/30/2017 Influenza Quadravalent, MDCK , 0.5ml, preservative free (Flucelvax) 6mo and older 03/29/2018 Influenza Quadrivalent, 0.5m l, preservative free (Fluarix; FluLaval; Fluzone) ages 6mo and older (Afluria) 3yo and older 11/10/2022,12/06/2021,12/25/2020,2019,11/17/2018,05/10/2018 Influenza trivalent, 0.5mL, preservative free (Fluarix; FluLaval; Fluzone) ages 6mo and older (Afluria) 3 years and older 04/07/2024,11/19/2016,01/17/2016,2014,02/18/2013 Influenza trivalent, with preservative (Fluzone; Afluria) 6mo and older 01/17/2016,02/18/2013 PPD Test 11/28/2016,08/03/2014 Td Tetanus diptheria (Tdvax) 7yo and older 07/19/2021 Tdap Tetanus diptheria acell ular pertussis (Boostrix; Adacel) 7yo and older 09/09/2010,07/28/2009 Surgical History Surgery Date Site/Laterality Comments SECTION PROCEDURE: [place] DELIVERY ONLY; COMMENT: x2 BREAST REDUCTION Bilateral PROCEDURE: [place] BREAST REDUCTION BARIATRIC SURGERY sleeve gastrectomy and hiatal hernia repair in 06/20/2022 COSMETIC SURGERY SECTION, LOW TRANSVERSE Medical History Medical History Date Comments Chronic low back pain 07/18/2011 DX:Chronic low back pain H/O bilateral breast reduction surgery 2016 DX:H/O bilateral breast reduction surgery 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 DX:Herpes simplex antibody positive Herpes genitalis DX:Herpes genit cristi Anxiety Depression GERD (gastroesophageal reflux disease) Irritable bowel syndrome Anemia Family History Medical History Relation Name Comments [...] drink = 0.6 oz pur e alcohol) OCCASIONALLY Interpersonal Safety Answer Date Record ed Physical Abuse 08/02/2024 Verbal Abuse 08/02/2024 Comments No Sex and Gender Information Value Date Recorded [...] oz) F CS-Un spec Living Comments:toxemia in [facility] Last Filed Vital Signs Vital Sign Reading Time Taken Comments Blood Pressure 107/44 08/06/2024 9:58 PM EDT Pulse 79 08/06/2024 9:58 PM EDT Temperature 36.7 C (98.1 F) 08/06/2024 9:58 PM EDT Respiratory Rate 16 08/06/2024 9:58 PM EDT Oxygen Saturation 99% 08/06/2024 9:58 PM EDT Inhaled Oxygen Concentration - - Weight 78 kg (172 lb) 08/06/2024 9:52 PM EDT Height 157.5 cm (5' 2 ) 08/06/2024 9:52 PM EDT Body Mass Index 31.46 08/06/2024 9:52 PM EDT Plan of Treatment Upcoming Encounters Date Type Department Care Team (Late st Contact Info) Description 08/29/2024 9:30 AM EDT Office Visit Plastic & Reconstructive Surgery - [place] [address] [place] [phone] Lázaro Price PA [address] [place] [address] [place] [address] Health Maintenance Due Date Last Done Comments Breast Cancer Screening 1980 Hepatitis B Vaccines (3 of 3 - 19+ 3-dose series) 12/25/2017 10/30/2017, 11/28/2016, 06/11/2016 Colorectal Cancer Screening: Colonoscopy 01/18/2022 Social Influencers of Health Screening 01/18/2022 COVID-19 Vaccine ( season) 2023 11/10/2022, 02/22/2020, 01/30/2020 Influenza Vaccine (#1) 2024 , 11/10/2022, 12/06/2021, Additional history exists Depression Screening 11/24/2024 11/25/2023 Cholesterol Screening (Lipid Panel) 06/20/2026 06/20/2021 Cervical Cancer Screening: HPV 03/10/2029 03/10/2024, 06/15/2017 DTaP,Tdap,and Td Vaccines (4 - Td or Tdap) 07/20/2031 07/19/2021, 09/09/2010, 07/28/2009 HIV Screening Completed 03/10/2024, 12/30/2018 Hepatitis C Screening Completed 03/10/2024, 023 HIB Vaccines Aged Out No longer eligi [...] 5 Years) and At-Risk Patients (6 to 49 Years) Aged Out No longer eligible based on patient's age to complete this topic RSV Immunization Patients Under 20 months Aged Out No longer eligible based on patient's age to complete this topic Varicella Vaccines Aged Out No longer eligible based on patient's age to complete this topic Procedures Procedure Name Priority Date/Time Associated Diagnosis Comments TISSUE EXAM Routine 08/02/2024 3:10 PM EDT Excess skin Abdominal pannus TH AN ENDOTRACHEAL(NO CHARGE) Routine 08/02/2024 2:06 PM EDT FL EXCISION EXCESSIVE SKIN SUBQ TISSUE ABD INFRAUMBILICAL PANNICULECTOMY 08/02/2024 1:48 PM EDT Excess skin Abdominal pannus Special Needs 2hr with 30 minutes clean up POC , URINE DIAGNOSTIC Routine 08/02/2024 12:12 PM EDT CULTURE HERPES SIMPLEX VIRUS Routine 07/01/2024 10:18 AM EDT Screen for STD (sexually transmitted disease) Skin eruption TRICHOMONAS VAGINALIS ANTIGEN Routine 07/01/2024 10:10 AM EDT Acute vaginitis WET PREP, GENITAL Routine 07/01/2024 10:10 AM EDT Acute vaginitis CHLAMYDIA TRACHOMATIS AND NEISSERIA GONORRHOEAE PCR Routine 07/01/2024 10:10 AM EDT Acute vaginitis Screen for STD (sexually transmitted disease) HPV WITH REFLEX GENOTYPE Routine 03/10/2024 11:43 AM EST Women's annual routine gynecological examination HEPATITIS C ANTIBODY Routine 03/10/2024 11:32 AM EST Screen for STD (sexually transmitted disease) HIV 1, 2 ANTIBODY, P24 ANTIGEN WITH REFLEX TO DIFFERENTIATION Routine 03/10/2024 11:32 AM EST Screen for STD (sexually transmitted disease) HM DEPRESSION SCREENING Routine 11/25/2023 LIPID PANEL Routine 06/20/2021 from Last 3 Months or Most Recently Relevant to Health Maintenance Results * Tissue exam (08/02/2024 3:10 PM EDT) Final Diagnosis Abdominal pannus-panniculec maria luisa: -1726 GRAMS OF BENIGN SKIN AND ADIPOSE TISSUE 08/04/2024 10:45 AM EDT [facility] Gross Description A. Other, abdominal pannus 1726 grams: Labeled other, abdominal . Received in formalin is a 1726 g (per requisition), 21 x 16 x 10 cm aggregate consisting of two triangular fragments of unremarkable erickson-brown skin and subcutaneous adipose tissue. No masses or lesions are appreciated. A training representative section is submitted in one cassette, one piece. HÉCTOR 08/04/2024 10:45 AM EDT [facility] Disclaimer Unless otherwise specified, all tissue is 10% NB formalin fixed and paraffin embedded. 08/04/2024 10:45 AM EDT [facility] Tissue Topography unknown / Unknown 08/02/2024 3:10 PM EDT 08/03/2024 5:37 AM EDT Terrence Guzman DO LAB PATHOLOGY ORDERABLES Fin al Result [facility] [address] [place] [address], * TH AN ENDOTRACHEAL(NO CHARGE) (08/02/2024 2:06 PM EDT) Narrative Ambar Medrano CRNA - 08/02/2024 2:06 PM EDT Ambar Medrano CRNA 08/02/2024 2:08 PM General Information and Staff Patient location during procedure: OR Resident/MANAGER INTENSIVE CARE: Ambar Medrano CRNA Performed by: Ambar Medrano CRNA Authorized by: Stoney Vásquez DO Intubation Additional Comments Elective ProVue Airway not difficult Urgency: elective Final Airway Details Successful airway: ETT Cuffed: yes Successful intubation technique: video laryngoscopy Endotracheal tube insertion site: oral Blade: Sid Blade size: #3 ETT size (mm): 7.0 Cormack-Lehane Classification: grade I - full view of glottis Placement verified by: chest auscultation and capnometry Measured from: teeth ETT to teeth (cm): 21 Number of attempts at approach: 1 Number of other approaches attempted: 0Final airway type: endotracheal airway Indications and Patient Condition Indications for airway management: anesthesia and airway protection Spontaneous ventilation: present Sedation level: Yes Preoxygenated: yes Soft Tissue Damage: No Dentition Unchanged: Yes Patient position: neutral MILS maintained throughout Mask difficulty assessment: 1 - vent by mask Stoney Vásquez DO ANESTHESIA ORDERABLES Final Res ult * POC , urine manually resulted (08/02/2024 12:12 PM EDT) Pathologist [facility] HCG, Ur POC Negative Negative POC hCG Int QC Pass? Yes Yes Urine Urine specimen obtained by clean catch procedure / Unknown 08/02/2024 12:12 PM EDT Stoney Vásquez DO POINT OF CARE TEST ENTER/EDIT O RDERABLES Final Result * Culture Herpes simplex virus (07/01/2024 10:18 AM EDT) Pathologist [facility] Specimen Source Dermal - R. Buttock 07/11/2024 10:[address] [facility] HSVC Interpretation No Growth No Growth 07/11/2024 10:[address] [facility] Comment: This method utilizes standard tube culture methods with monoclonal antibody staining of CPE-positive cells. This procedure can detect and differentiate herpes type 1 and herpes type 2. Other viruses present in the specimen will not be identified. A negative result does not preclude viral infection. The viability of viral agents can be degraded if specimens are improperly collected or stored. The number of viable virus particles may be below the detection threshold. Test performed at [facility], [address] [place] [address] Kaylyn Contreras MD, PhD - Finished Cloth Checker Swab Structure of right buttock / Unknown Non-blood Collection / Unknown 07/01/2024 10:18 AM EDT 07/01/2024 12:31 PM EDT Migdalia Sarkar [facility] MICROBIOLOGY - GENERAL OR DERABLES Final Result [facility] [address] [place] [address] * Trichomonas vaginalis antigen (07/01/2024 10:10 AM EDT) Trichomonas vaginalis Negative Negative 07/01/2024 2:06 PM EDT [facility] Swab Vaginal structure / Unknown Non-blood Collection / Unknown 07/01/2024 10:10 AM EDT 07/01/2024 12:31 PM EDT Migdalia Sarkar [facility] MICROBIOLOGY - GENERAL OR DERABLES Final Result Performing Organization Address City/[facility] Co de Phone Number [facility] [address] [place] [address], [place] [phone] * Chlamydia trachomatis and Neisseria gonorrhoeae molecular study (07/01/2024 10:10 AM EDT) Neisseria gonorrhoeae PCR Negative Negative LAB MOLECULAR DIAGNOSTICS METHOD 07/02/2024 10:35 AM EDT [facility] Chlamydia trachomatis PCR Negative Negative LAB MOLECULAR DIAGNOSTICS METHOD 07/02/2024 10:35 AM EDT [facility] Swab Cervix uteri structure / Unknown Non-blood Collection / Unknown 07/01/2024 10:10 AM EDT 07/01/2024 12:31 PM EDT Migdalia Sarkar [facility] MICROBIOLOGY - GENERAL OR DERABLES Final Result [facility] [address] [place] [address], [place] [phone] * Wet prep, genital (07/01/2024 10:10 AM EDT) Clue Cells, Wet Prep Negative Negative 07/01/2024 1:53 PM EDT [facility] Yeast, Wet Prep Negative Negative 07/01/2024 1:53 PM EDT [facility] Trichomonas, Wet Prep Indeterminate Negative 07/01/2024 1:53 PM EDT [facility] Comment:Refer to Trichomonas antigen. Swab Vaginal structure / Unknown Non-blood Collection / Unknown 07/01/2024 10:10 AM EDT 07/01/2024 12:31 PM EDT Migdalia Sarkar [facility] MICROBIOLOGY - GENERAL OR DERABLES Final Result [facility] [address] [place] [address], * HPV with reflex genotype (03/10/2024 11:43 AM EST) [facility] HPV Negative Negative LAB MICROBIOLOGY METHOD 03/11/2024 2:58 PM EST [facility] Brushing/Spatula Cervix uteri structure / Unknown 03/10/2024 11:43 AM EST 03/11/2024 8:10 AM EST Manda Perez [facility] MOLECULAR DIAGNOSTICS O RDERABLES Final Result [facility] [address] [place] [address], [place] [phone] * Hepatitis C antibody (03/10/2024 11:32 AM EST) Hepatitis C Antibody Negative Negative LAB CHEMISTRY METHOD 03/10/2024 3:19 PM EST [facility] Blood Venous blood specimen / Unknown Venipuncture / Unknown 03/10/2024 11:32 AM EST 03/10/2024 11:32 AM EST us Manda DYER LAB BLOOD ORDERABLES Final Result Performing Organization Address City/[facility]/ZIP Co de Phone Number [facility] [address] [place] [address], [place] [phone] * HIV 1,2 antibody, p24 antigen with reflex to differentiation (03/10/2024 11:32 AM EST) [facility] HIV Combo AB/AG Negative Negative LAB CHEMISTRY METHOD 03/10/2024 3:20 PM EST [facility] Blood Venous blood specimen / Unknown Venipuncture / Unknown 03/10/2024 11:32 AM EST 03/10/2024 11:32 AM EST Narrative [facility] - 03/10/2024 3:20 PM EST This assay is a 4th generation assay allowing for earlier detection of HIV infection by detecting the presence of the HIV-1 p24 antigen as well as the traditional antibodies to HIV type 1 (including group O) and type 2. Use of a 4th generation assay is the current CDC recommendation for HIV screening. Manda DYER LAB BLOOD ORDERABLES Final Result Performing Organization Address City/[facility]/ZIP Co de Phone Number [facility] [address] [place] [address], [place] [phone] * Depression Screening (11/25/2023) [facility] Depression Screening abstracted [facility] Provider HEALTH MAINTENANCE Final Result * (ABNORMAL) Lipid panel (06/20/2021) [facility] LDL/HDL Ratio 6(A) 0 - 4 Triglycerides 225(A) 0 - 150 mg/dL Cholesterol 154 0 - 200 mg/dL HDL 27(A) >=40 mg/dL LDL Cholesterol 82 0 - 100 mg/dL Blood Venous blood specimen / Unknown us Historical Provider LAB BLOOD ORDERABLES Betty l Result from Last 3 Months or Most Recently Relevant to Health Maintenance Insurance [facility] [address] [place] [phone] Care Teams Program Research Specialist Relationship Specialty Start Date End Date David Patel MD [address] [facility], [place] PCP - General Internal Medicine 07/19/21
--- OUTSIDE RECORDS SUMMARY | 2024-08-25 14:35 | XMS_ITS | Clinical Summary ---
Author Organization [facility] Address [address] [place] [id number] Care Team Providers Care Internal Combustion Engine Inspector Name Role Phone David Patel MD Primary [...] 75 07/28/2022 2:26 PM EDT Temperature 36.5 C (97.7 F) 07/28/2022 2:26 PM EDT Respiratory Rate - - Oxygen Saturation 100% [...] - 19+ 3-dose series) 01/23/2017 11/28/2016, 06/11/2016 Colon Cancer Screening (Colonoscopy) 08/07/2024 Influenza Vaccine (#1) 2024 9, 01/17/2016, 02/18/2013 DTap / Tdap / Td (4 - Td or Tdap) 07/20/2031 07/19/2021, 09/09/2010, 07/28/2009 Pneumococcal Vaccine Aged Out No long er eligible based on patient's age to complete this topic RSV Ped < 20 months Aged Out No longe r eligible based on patient's age to complete this topic Care Teams Internal Combustion Engine Inspector Relationship Specialty Start Date End Date David Patel MD [address] [place] [address] PCP - General 07/15/22
--- OUTSIDE RECORDS SUMMARY | 2024-08-25 14:35 | XMS_ITS | Data Portability ---
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 [place] [id number] 06/27/2003 12:54:16 06/28/2003 08:55:04 [id number] [facility] - [address] [place] [id number] 09/08/2003 12:17:19 09/08/2003 12:28:19 [id number] Judith Martínez MD , [address] [place] [address] 1 09/08/2003 11:28:16 09/11/2003 09:14:36 [id number] [facility] - [address] [place] [id number] 09/29/2003 16:00:51 09/29/2003 16:01:09 [id number] Michele Hull MD , [address] [place] [id number] 09/29/2003 15:16:42 10/02/2003 10:01:44 [id number] Judith Martínez MD , [address] [place] [address] 10/02/2003 12:06:55 10/03/2003 17:20:40 [id number] Judith Martínez MD , [address] [place] [address] 1 10/24/2003 15:41:42 10/26/2003 09:23:45 [id number] Judith Martínez MD , [address] [place] [address] 12/18/2003 12:27:40 12/19/2003 09:13:08 [id number] Judith Martínez MD , [facility] [address] [place] [id number] 02/16/2004 14:46:53 02/16/2004 17:50:42 [id number] Judith Martínez MD , [facility] [place] [address] [place] [address] 04/01/2004 10:32:45 04/04/2004 17:40:43 [id number] Judith Martínez MD , [facility] [address] [place] [id number] 07/09/2004 10:55:36 07/10/2004 08:23:05 [id number] Cayden Goss MD , [facility] [place] [address] [place] [id number] 10/10/2004 10:11:59 10/11/2004 09:38:02 [id number] [facility] - [facility] [address] [place] [id number] 10/10/2004 14:36:06 10/10/2004 14:36:56 [id number] Genoveva NEWBERRY , [facility] [place] [address] [place] [address] 10/23/2004 17:02:40 10/25/2004 14:45:35 [id number] Cecile Beckman NP , [facility], [facility] [address] [place] [id number] 05/12/2005 15:21:38 05/13/2005 09:54:37 [id number] Lexie Villa MD , [facility] [place]ICE [address] [place] [address] [place] [id number] 08/22/2005 09:58:34 08/22/2005 14:12:54 [id number] Gray Mock, OD Eye Care, [facility] [address] [place] [id number] 12/08/2005 10:31:44 12/08/2005 13:01:56 [id number] [facility], [facility] [address] [place] [id number] 12/08/2005 11:10:30 12/08/2005 17:00:15 [id number] Kamila House , [facility] [address] [place] [id number] 01/05/2006 17:13:55 01/06/2006 08:40:43 [id number] Judith Martínez MD , [facility]ICE [address] [place] [address] [place] [address] 04/06/2006 11:11:30 04/06/2006 12:36:15 [id number] [facility] - [facility] [address] [place] [id number] 04/06/2006 13:19:35 04/06/2006 13:19:48 [id number] [facility] - [address] [place] [id number] 05/22/2006 16:30:36 05/22/2006 16:30:52 [id number] Cecile Beckman NP , [facility], [address] [place] [address] 05/22/2006 15:35:31 05/25/2006 07:48:48 [id number] Lashae Pastor [facility], [address] [place] [address] 1 06/26/2006 08:04:21 06/26/2006 10:05:31 [id number] Cayden Goss MD , [facility] [address] [place] [address] [place] [address] 08/25/2006 08:07:20 08/26/2006 08:30:33 [id number] Cecile Beckman NP , [facility], [address] [place] [address] 1 09/08/2006 13:02:01 09/08/2006 16:39:25 [id number] Genoveva NEWBERRY , [facility], [address] [place] [address] 1 09/15/2006 14:03:17 09/21/2006 07:47:32 [id number] Judith Martínez MD , [facility], [address] [place] [address] 1 11/23/2006 11:57:43 11/25/2006 11:18:12 [id number] [facility] - [facility] [address] [place] [id number] 11/23/2006 13:02:34 11/23/2006 13:02:50 [id number] Sandi Villa NP , [facility]ICE [address] [place] [address] [place] [address] 1 03/18/2007 15:15:51 03/01/2008 02:02:29 [id number] [facility], [facility] [address] [place] [address] 04/12/2007 10:53:29 04/12/2007 16:46:40 [id number] Gray Mock, Eye Care, [facility] [address] [place] [address] 04/12/2007 09:43:55 04/12/2007 13:32:35 [id number] AKILAH Prasad, [facility] [place] [address] [place] [address] 06/03/2007 08:53:39 03/01/2008 02:02:29 [id number] [facility] - [facility] [place] [address] 06/03/2007 09:47:50 06/03/2007 09:47:58 [id number] [facility] - [facility] [place] [address] 06/07/2007 11:41:10 06/07/2007 11:41:17 [id number] MD ELEUTERIO Peralta, [facility] [place] [address] [place] [address] 06/09/2007 16:52:04 06/14/2007 13:23:06 [id number] AKILAH Prasad, [facility] [place] [address] [place] [address] 1 09/28/2007 12:45:50 03/01/2008 02:02:29 [id number] [facility] - [facility] [place] [address] 09/28/2007 13:53:41 09/28/2007 13:53:49 [id number] [facility] - [facility] [place] [address] 09/28/2007 00:00:00 03/01/2008 02:02:29 [id number] AKILAH Prasad, [facility] [place] [address] [place] [address] 1 11/23/2007 16:24:41 03/01/2008 02:02:29 [id number] [facility] - [facility] [place] [address] 11/24/2007 09:22:08 11/24/2007 09:22:15 [id number] Judith Martínez MD , [facility] [place] [address] [place] [address] 05/10/2008 09:34:59 05/15/2008 12:06:29 [id number] Pearl Hollis MD , [facility] [place] [address] [place] [address] 08/02/2008 15:45:01 08/07/2008 10:57:39 [id number] Judith Martínez MD , [facility] [place] [address] [place] [id number] 10/26/2008 14:36:45 10/27/2008 10:10:35 [id number] Pearl Osorio, PT Physical Therapy, [address] [place] [id number] 05/10/2008 15:00:25 05/10/2008 15:00:31 [id number] [facility] - [address] [place] [id number] 08/03/2008 06:46:50 08/03/2008 06:47:04 [id number] [facility] - [address] [place] [id number] 1 10/26/2008 15:43:52 10/26/2008 15:44:50 Health Concerns Section Related Observation LastModified by Organization Detai ls LastModified Time None Recorded Concern Status LastModified by Organization Details LastModified Time None Recorded Advance Directives Directive None Recorded Payers Insurance Date Sequence Insurance Name Policy Number Policy Call Covered Member ID Call Member ID Guarantor Name 03/28/2020 1 [place] Shiela Mcintyre [id number] Shiela Mcintyre 03/28/2020 1 [facility] HEALTH NET PLAN (MEDICAID HMO) Shiela Mcintyre [id number] Shiela Mcintyre 03/28/2020 1 [place] Shiela Mcintyre [id number] Shiela Mcintyre 03/28/2020 2 [place] Shiela Mcintyre [id number] Shiela Mcintyre 03/28/2020 1 [facility] HEALTH NET PLAN (MEDICAID HMO) Shiela Mcintyre [id number] Shiela Mcintyre 03/28/2020 1 [place] [id number] Shiela Mcintyre [id number] Shiela Mcintyre 03/28/2020 [employer] Shiela Mcintyre Notes Date Note Type Note Provider Name and Address Organization Details Recorded Time 10/26/2008 text/html InitializeSe ction( this.Arleen gonzalez, 1 ); this.Jason gonzalez(true)HPI None recorded. Judith Martínez MD [address] [place] [address], [place], [address], [facility] 10/28/2008 20:19:00 OBGyn Episode No OBEpisode recorded.
== END 2024-08-25 15:00 | disposition home or self-care (01) ==
PROVIDERS: PCP Internal Medicine; Visit Provider Physician Assistant
DX: Z13.9 Encounter for screening, unspecified (principal); J02.0 Streptococcal pharyngitis

== ENCOUNTER 2024-08-25 13:52 | Outpatient (REF) | payer OTHER, SELFPAY ==
[2024-08-25 16:55] LABS: Resp Syncy Virus RNA Qual PCR NEGATIVE (Negative); SARS COV2 PCR INHOUSE NEGATIVE (Negative)
== END 2024-08-25 13:53 | disposition home or self-care (01) ==
LOC: HO.LAB 13:52
PROVIDERS: PCP Internal Medicine; Visit Provider Physician Assistant
DX: R09.89 Other specified symptoms and signs involving the circulatory and respiratory systems (principal); Z13.9 Encounter for screening, unspecified
CPT/HCPCS: 87637; 87880

== ENCOUNTER 2024-09-23 08:58 | Outpatient (REF) | payer OTHER, SELFPAY ==
--- OUTSIDE RECORDS SUMMARY | 2024-09-23 09:15 | XMS_ITS | Clinical Summary ---
Author Organization [address] [place] [address] [place] [phone] Phone Care Team Providers Care Laboratory Coordinator Name Role Phone David Patel MD Primary [...] day. Active esomeprazole (NexIUM) [address] capsuleIndicati ons:Gastroesoph ageal reflux disease, unspecified whether esophagitis present Take 1 capsule (40 mg total) by mouth 1 (one) time each day before breakfast. Do not open capsule. 30 each 01/27/20 24 025 Active simethicone (MYLICON) 80 [...] 1 (one) time each day. 30 each 11 08/09/19 25 026 Active nystatin (MYCOSTATIN) cream Apply to area twice daily for 14 days 11/25/19 24 Discontinued Active Problems Problem Noted Date Diagnosed Date [...] Date Resolved Date Aneurysm of ascending aorta (CMS/HCC V24) 10/08/2022 08/02/2024 Overview (12/18/2023): Last Assessment [...] Encounters Date Type Department Care Team Description 08/29/2024 9:30 AM EDT Office Visit Plastic & Reconstructive Surgery [address] [address] Lázaro Price PA S/P panniculectomy (Primary Dx) 08/15/2024 10:00 AM EDT Office Visit Plastic & Reconstructive Surgery [address] [address] Vivienne Garcia PA S/P panniculectomy (Primary Dx) 2024 8:30 AM EDT Office Visit Plastic & Reconstructive Surgery [address] [address] Lázaro Price PA S/P panniculectomy (Primary Dx) 08/07/2024 Telephone Plastic & Reconstructive Surgery [address] [address] Lázaro Price PA 08/06/2024 9:49 PM EDT - 08/07/2024 12:11 AM EDT Emergency [facility] Emergency [address] [place] [address] Discharge Disposition: Home or Self Care 08/06/2024 Telephone Plastic & Reconstructive Surgery [address] [address] Lázaro Price PA 08/03/2024 Telephone [facility] Main OR [address] [place] [address] Lázaro Price PA 08/02/2024 1:48 PM EDT Anesthesia Event [facility] OR [address] [place] [phone] Stoney Vásquez DO 08/02/2024 1:00 PM EDT - 08/02/2024 3:30 PM EDT Surgery [facility] OR [address] [place] [phone] Terrence Guzman DO PANNICULECTOMY [[id number] (CPT )] 08/02/2024 11:34 AM EDT - 08/02/2024 5:40 PM EDT Hospital Encounter [facility] OR [address] [place] [address] Terrence Guzman DO Excess skin; Abdominal pannus Discharge Disposition: Home or Self Care 07/26/2024 Telephone General Surgery [facility] [address] [place] [phone] Terrence Guzman DO FORM FMLA (07/26/24 receive Fmla) 07/18/2024 3:00 PM EDT Consult Plastic & Reconstructive Surgery [facility] [address] [place] [phone] Terrence Guzman DO Rash (Primary Dx); Intertrigo; Abdominal pannus 07/01/2024 9:45 AM EDT Office Visit Obstetrics & Gynecology - [facility] [address] [place] [phone] Migdalia Sarkar CNM Acute vaginitis (Primary Dx); Screen for STD (sexually transmitted disease); Vulvar lesion; Hidradenitis suppurativa; Skin eruption from Last 3 Months Immunizations Name Administration Dates Next Due Hepatitis B (Clsxero-T-Igioi , Recombivax HB-Adult) 19yo and older 11/28/2016,06/11/2016 [...] History Surgery Date Site/Laterality Comments SECTION PROCEDURE: [place] DELIVERY ONLY; COMMENT: x2 BREAST REDUCTION Bilateral PROCEDURE: [place] BREAST REDUCTION BARIATRIC SURGERY sleeve gastrectomy and [...] Care Team (Late st Contact Info) Description 10/31/2024 10:00 AM EDT Office Visit Plastic & Reconstructive Surgery - [place] [address] [place] [phone] Lázaro Price PA [address] [place] [address] Health Maintenance Due Date Last Done Comments Breast Cancer Screening 1980 Hepatitis B Vaccines (3 of 3 - 19+ 3-dose series) 12/25/2017 10/30/2017, 11/28/2016, 06/11/2016 Colorectal Cancer Screening: Colonoscopy 01/18/2022 Social Influencers of Health Screening 01/18/2022 COVID-19 Vaccine (4 - season) 2023 11/10/2022, 02/22/2020, 01/30/2020 Depression Screening 02/10/2024 11/25/2023 Influenza Vaccine (#1) 2024 , 11/10/2022, 12/06/2021, Additional history exists Cholesterol Screening (Lipid Panel) 06/20/2026 06/20/2021 Cervical [...] ENDOTRACHEAL(NO CHARGE) Routine 08/02/2024 2:06 PM EDT [place] EXCISION EXCESSIVE SKIN SUBQ TISSUE ABD INFRAUMBILICAL [...] AND ADIPOSE TISSUE 08/04/2024 10:45 AM EDT [facility] Gross Description A. Other, abdominal pannus 1726 grams: Labeled other, abdominal . Received in formalin is a 1726 g (per requisition), 21 x 16 x 10 cm aggregate consisting of two triangular fragments of unremarkable erickson-brown skin and subcutaneous adipose tissue. No masses or lesions are appreciated. A veterans service representative section is submitted in one cassette, one piece. HÉCTOR 08/04/2024 10:45 AM EDT [facility] Disclaimer Unless otherwise specified, all tissue is 10% NB formalin fixed and paraffin embedded. 08/04/2024 10:45 AM EDT [facility] Tissue Topography unknown / Unknown 08/02/2024 3:10 PM EDT 08/03/2024 5:37 AM EDT Terrence Guzman DO LAB PATHOLOGY ORDERABLES Fin al Result [facility] [address] [place] [address], * TH AN ENDOTRACHEAL(NO CHARGE) (08/02/2024 2:06 PM EDT) Narrative Ambar Medrano CRNA - 08/02/2024 2:06 PM EDT Ambar Medrano CRNA 08/02/2024 2:08 PM General Information and Staff Patient location during procedure: OR Resident/CITY MAIL CARRIER: Ambar Medrano CRNA Performed by: Ambar Medrano [...] assessment: 1 - vent by mask Stoney Levinedel STALLINGS ANESTHESIA ORDERABLES Final Res ult * POC , urine manually resulted (08/02/2024 12:12 PM EDT) HCG, Ur POC Negative Negative POC hCG Int QC Pass? Yes Yes Urine Urine specimen obtained by clean catch procedure / Unknown 08/02/2024 12:12 PM EDT Stoney Vásquez DO POINT OF CARE TEST ENTER/EDIT O RDERABLES Final Result * Culture Herpes simplex virus (07/01/2024 10:18 AM EDT) Specimen Source Dermal - R. Buttock 07/11/2024 10:37 AM EDT [facility] HSVC Interpretation No Growth No Growth 07/11/2024 10:37 AM EDT [facility] Comment: This method utilizes standard tube [...] below the detection threshold. Test performed at [facility], [address] [place] [address] Kaylyn Contreras MD, PhD - Gasket Former Swab Structure of right buttock / Unknown Non-blood Collection / Unknown 07/01/2024 10:18 AM EDT 07/01/2024 12:31 PM EDT Migdalia DY[facility] LAB MICROBIOLOGY - GENERAL OR DERABLES [place] [address] * Trichomonas vaginalis antigen (07/01/2024 10:10 AM EDT) Trichomonas vaginalis Negative Negative 07/01/2024 2:06 PM EDT [facility] Swab Vaginal structure / Unknown Non-blood Collection / Unknown 07/01/2024 10:10 AM EDT 07/01/2024 12:31 PM EDT [facility] MICROBIOLOGY - GENERAL OR DERABLES Final Result [facility] [address] [place] [address], [place] [phone] * Chlamydia trachomatis and Neisseria gonorrhoeae molecular study (07/01/2024 10:10 AM EDT) Neisseria gonorrhoeae PCR Negative Negative LAB MOLECULAR DIAGNOSTICS METHOD 07/02/2024 10:35 AM EDT [facility] Chlamydia trachomatis PCR Negative Negative LAB MOLECULAR DIAGNOSTICS METHOD 07/02/2024 10:35 AM EDT [facility] Swab Cervix uteri structure / Unknown Non-blood Collection / Unknown 07/01/2024 10:10 AM EDT 07/01/2024 12:31 PM EDT [facility] MICROBIOLOGY - GENERAL OR DERABLES Final Result [facility] [address] [place] [address], [place] [phone] * Wet prep, genital (07/01/2024 10:10 AM EDT) Clue Cells, Wet Prep Negative Negative 07/01/2024 1:53 PM EDT [facility] Yeast, Wet Prep Negative Negative 07/01/2024 1:53 PM EDT [facility] Trichomonas, Wet Prep Indeterminate Negative 07/01/2024 1:53 PM EDT [facility] Comment:Refer to Trichomonas antigen. Swab Vaginal structure / Unknown Non-blood Collection / Unknown 07/01/2024 10:10 AM EDT 07/01/2024 12:31 PM EDT Migdalia Sarkar [facility] MICROBIOLOGY - GENERAL OR DERABLES Final Result [facility] [address] [place] [address], [place] [phone] * HPV with reflex genotype (03/10/2024 11:43 AM EST) HPV Negative Negative LAB MICROBIOLOGY METHOD 03/11/2024 2:58 PM EST [facility] Brushing/Spatula Cervix uteri structure / Unknown 03/10/2024 11:43 AM EST 03/11/2024 8:10 AM EST us Manda DYER LAB MOLECULAR DIAGNOSTICS O RDERABLES Final Result Performing Organization Address [facility]/ZIP Co de Phone Number [facility] [address] [place] [address], [place] [phone] * Hepatitis C antibody (03/10/2024 11:32 AM EST) Hepatitis C Antibody Negative Negative LAB CHEMISTRY METHOD 03/10/2024 3:19 PM EST [facility] Blood Venous blood specimen / Unknown Venipuncture / Unknown 03/10/2024 11:32 AM EST 03/10/2024 11:32 AM EST us Manda DYER LAB BLOOD ORDERABLES Final Result [facility] [address] [place] [address], [place] [phone] * HIV 1,2 antibody, p24 antigen with reflex to differentiation (03/10/2024 11:32 AM EST) [facility] HIV Combo AB/AG Negative Negative LAB CHEMISTRY METHOD 03/10/2024 3:20 PM EST [facility] Blood Venous blood specimen / Unknown Venipuncture / Unknown 03/10/2024 11:32 AM EST 03/10/2024 11:32 AM EST Narrative [facility] - 03/10/2024 3:20 PM EST This assay is a 4th generation assay allowing for earlier detection of HIV infection by detecting the presence of the HIV-1 p24 antigen as well as the traditional antibodies to HIV type 1 (including group O) and type 2. Use of a 4th generation assay is the current CDC recommendation for HIV screening. Manda Perez CNM LAB BLOOD ORDERABLES Final Result [facility] [address] [place] [address], [place] [phone] * Depression Screening (11/25/2023) [facility] Depression Screening abstracted Historical Provider HEALTH MAINTENANCE Final Result * (ABNORMAL) Lipid panel (06/20/2021) [facility] LDL/HDL Ratio 6(A) 0 - 4 Triglycerides 225(A) 0 - 150 mg/dL Cholesterol 154 0 - 200 mg/dL HDL 27(A) >=40 mg/dL LDL Cholesterol 82 0 - 100 mg/dL Blood Venous blood specimen / Unknown Historical Provider LAB BLOOD ORDERABLES Betty l Result from Last 3 Months or Most Recently Relevant to Health Maintenance Insurance [facility] [address] [place] [address] Care Teams Laboratory Coordinator Relationship Specialty Start Date End Date David Patel MD [address] [facility], [place] PCP - General Internal Medicine 07/19/21
--- OUTSIDE RECORDS SUMMARY | 2024-09-23 09:15 | XMS_ITS | Clinical Summary ---
Author Organization [facility] Address [address] [place] [address] Care Team Providers Care Rotary Dump Operator Name Role Phone David Patel MD [...] age to complete this topic Care Teams Rotary Dump Operator Relationship Specialty Start Date End Date David Patel MD [address] [place] [address] PCP - General 07/15/22
--- OUTSIDE RECORDS SUMMARY | 2024-09-23 09:15 | XMS_ITS | Encounter Summary ---
Author Organization [facility] Address [address] [place] [address] Care Team Providers Care Bander And Cellophaner Machine Name Role Phone Rivka Cage DO Primary Care Pro vider Unavailable Karla Merritt MD Primary Care Provider Unavail Kesha Beckman MD Primary Care Provider David Kumar MD Primary Care Provider + Luis Healy MD Unavailable [phone] Reason for Visit * Reason Onset Date Comments Prior Authorization 11/16/2019 Encounter Details Date Type Department Care Team Description 11/16/2019 Telephone Gastroenterology - [address] [place] [address] Allan Allen PA-C Prior Authorization Social History Tobacco Use Types Packs/Day Years [...] or suspected to have Coronavirus / COVID-19? No / Unsure 11/07/2019 10:01 AM EDT documented as of this encounter Miscellaneous Notes * Telephone Encounter - Damaris Montero M.A. - 11/18/2019 3:36 PM EDT Prior authorization for the linzess was approved Approved from 11/18/2019 until 11/17/2020 Prior authorization approval number # [id number] [phone] * Telephone Encounter - Florina Funez M.A. - 11/18/2019 8:31 AM EDT Dx code:K59.09 Chronic constipation Prior authorization done on [facility] form for Linzess 145mg capsules. Patient tried and failed Colace, Senna, Enemas, Miralax, Fiber, and Lactulose. * Telephone Encounter - Brooke Bowens - 11/16/2019 9:08 AM EDT Prior Authorization for Medication-do not complete and send this encounter unless you have the fax from the pharmacy. Is this a Cover My Meds request: [place] of Medication Linzess Dose of Medication 145MCG What is the RX # from the faxed refill? [id number] How does patient take this med? 1 capsule by mouth daily What Pharmacy did the fax come from: [facility] fax #: [phone] [employer] Information from fax: What Prescription Plan does the patient have? BIN/PCN if applicable: Cardholder ID: Person Code: Relationship Code: Help desk phone: documented in this encounter Plan of Treatment Not on file documented as of this encounter Visit Diagnoses Not on filedocumented in this encounter Care Teams Bander And Cellophaner Machine Relationship Specialty Start Date End Date Rivka Cage DO PCP - General Internal Medicine 09/01/19 08/22/20 Karla Merritt MD PCP - General Internal Medicine 08/23/20 02/25/21 Kesha Joy MD PCP - General Internal Medicine 02/26/21 07/18/21 David Patel MD [address] [place] [address] PCP - General Internal Medicine 07/19/21 Luis Healy MD [address] [place] [address] [place] [address] Specialist Cardiovascular Disease 07/21/22 documented as of this encounter
[2024-09-24 05:08] LABS: Hepatitis B Surface Ab Qnt 90 mIU/mL (> OR = 10)
[2024-09-24 06:54] LABS: Rubeola IgG (Measles) >300.00 AU/mL
[2024-09-26 13:38] LABS: TS Negative Control Passed; TS Panel A 0; TS Panel B 0; TS Positive Control Passed; TSpotTB Negative (Negative)
== END 2024-09-23 08:59 | disposition home or self-care (01) ==
LOC: HO.HMGCLDS 08:58
PROVIDERS: PCP Internal Medicine; Visit Provider Internal Medicine
DX: Z01.84 Encounter for antibody response examination (principal); Z11.1 Encounter for screening for respiratory tuberculosis
CPT/HCPCS: 36415; 86317; 86481; 86735; 86762; 86765; 86787

== ENCOUNTER 2024-10-17 13:09 | Outpatient (AMB) | payer OTHER, SELFPAY ==
[2024-10-17 13:11] VITALS: BP 92/68; PULSE 65; RESP 16; TEMP 36.9; O2SAT 99; BMI 32.0
--- NOTE | 2024-10-17 13:11 | MHC.PC.OV ---
Vital Signs 10/17/24 13:11 Height 5 ft 2 in Weight 175 lb BMI 32.0 BP 92/68 Blood Pressure Location Lt brachial Position Sitting Respiration 16 Pulse 65 Pulse Source Pulse Oximeter Temp 98.5 F Temp Source Oral Pulse Oximetry (%) 99 Oxygen Delivery Method Room Air Intake Visit Reasons: PE Intake Note: Pt is here today for her PE: Allergies No Known Allergies Allergy (Verified 10/17/24 13:30) Medication List - Last Reconciled 10/17/24 by Kamala Shah MD bupropion HCl XL 300 mg PO QAM cholecalciferol (vitamin D3) 50 mcg PO DAILY esomeprazole magnesium 40 mg PO DAILY ondansetron 4 mg PO Q8H simethicone 80 mg PO BID-QID PRN spironolactone 50 mg PO BID valacyclovir 500 mg PO BID PRN Tobacco use date assessed: 10/17/24 Dental Screening Dental Screen Date: 10/17/24 HPI PE HPI Details 44 year old lady with history of chronic GERD and Davis's esophagus, currently on esomeprazole 40 mg daily, has hidradenitis suppurativa currently on spironolactone 50 mg twice a day, and has history of genital herpes, here today for her physical exam. She goes to [facility] for her routine Pap and pelvic exam, last Pap and pelvic exam was done 03/2024 with benign findings per patient She needs a student Health questionnaire completed and proof of immunity against mumps, measles, rubella, hepatitis-B and varicella and an updated T spot and flu shot and Tdap as well as COVID vaccines per state guidelines. - Has anxiety depression, currently stable and controlled on bupropion HCL 300 mg daily in a.m. - Has been feeling well with no complaints at present time. - Davis's esophagus: Managed with esomeprazole, no recent upper endoscopy since sleeve gastrectomy in 2022 - Breast reduction, , and panniculectomy: History includes breast reduction, , and recent panniculectomy in August with numbness and ongoing scar healing. - Elevated parathyroid hormone: Last checked in 2018, repeat test ordered. - Leg cramps, mostly at night PFSH Medical History Chronic GERD History of Davis's esophagus Anxiety and depression Hidradenitis suppurativa History of herpes genitalis Surgical History (Updated 10/17/24 @ 13:55 by Kamala Shah MD) S/P panniculectomy Hx of colonoscopy History of esophagogastroduodenoscopy (EGD) History of Hx of breast reduction, elective History of sleeve gastrectomy Family History Father Mental health disorder Mother Ovarian cancer, Onset Age: 60 Chronic kidney disease, stage 4 (severe) Essential hypertension Osteoarthritis Social History Housing: House Alcohol intake: current Alcohol intake frequency: holidays/special occasions only Alcohol type: wine Patient Tobacco Use Status: Never used Tobacco e-Cigarette/Vaping Use: Never Used service: No Current occupational status: employed Cognitive needs: No Hearing needs: No Vision needs: Yes Questionnaire PHQ-9 Over the last 2 weeks, how often have you been bothered by any of the following problems? 1. Little interest or pleasure in doing things: not at all 2. Feeling down, depressed, or hopeless: not at all 3. Trouble falling or staying asleep, or sleeping too much: several days 4. Feeling tired or having little energy: several days 5. Poor appetite or overeating: not at all 6. Feeling bad about yourself - or that you are a failure or have let yourself or your family down: not at all 7. Trouble concentrating on things, such as reading the newspaper or watching television: not at all 8. Moving or speaking so slowly that other people could have noticed. Or the opposite - being so fidgety or restless that you have been moving around a lot more than usual: not at all 9. Thoughts that you would be better off or of hurting yourself in some way: not at all Total score: 2 Depression Screening Interpretation: Positive (Controlled on bupropion) Depression Screening Follow-up: Existing condition and In treatment Depression Screening Done: Yes Source: Developed by Drs. Tyshawn Arevalo, Ysabel Ricketts, Quinten Eugene and colleagues, with an educational melissa from [employer]. Thrive Questionnaire Date Thrive assessed: 05/26/24 I am a: Patient What is your living situation today?: I have a steady place to live Within the past 12 months, did the food you bought not last and you didn't have the money to get more?: Often true Within the past 12 months, did you worry whether your food would run out before you got money to buy more?: Never true Do you have trouble paying for medicines?: No Do you have trouble getting transportation to medical appointments?: No Do you have trouble paying your heating and electricity bill?: Yes Do you have trouble taking care of your child, family member or friend?: No Do you have trouble with day-to-day activities such as bathing, preparing meals, shopping, managing finances, etc.?: No Are you currently unemployed and looking for a job?: No Are you interested in more education?: No Please select the resources that you would like help with: None Currently or been in a relationship where the following occur: No concerns reported THRIVE Score: 2 YAKELIN-7 AMB Questionnaire YAKELIN-7 Date YAKELIN - 7 assessed: 05/26/24 Source: Developed by Drs. Tyshawn Arevalo, Ysabel Ricketts, Quinten Eugene and colleagues, with an educational melissa from [employer]. Review of Systems Const Denies body aches, Denies fatigue, Denies fever(s) and Denies headache(s) Eyes Denies change in vision ENT Denies dizziness, Denies headache(s) and Denies nasal congestion Card Denies chest pain, Denies lightheadedness, Denies palpitations and Denies dyspnea Resp Denies chest congestion, Denies cough, Denies dyspnea and Denies wheezing GI Denies abdominal pain, Denies change in bowel habits and Denies heartburn Denies hematuria, Denies urinary frequency, Denies dysuria and Denies urinary urgency Musc Reports no additional complaints Skin/Breast Details: Sees Dr. Feliciano for hidradenitis suppurativa in axilla and inguinal areas, has recurrent antibiotics and is currently on spironolactone Denies breast pain and Denies breast mass Neuro Denies dizziness and Denies headache(s) Psych Reports as per HPI Endo Denies fatigue, Denies polydipsia, Denies polyuria and Denies palpitations Blanco/Lymph Denies easy bruising Aller/Immun Denies seasonal rhinorrhea and Denies wheezing Physical exam (Primary Care) Vital Signs: Last Vital Signs Temp 98.5 F 10/17/24 13:11 Pulse 65 10/17/24 13:11 Resp 16 10/17/24 13:11 BP 92/68 10/17/24 13:11 Pulse Ox 99 10/17/24 13:11 Oxygen Delivery Method Room Air 10/17/24 13:11 BMI result Body Mass Index 32.0 Tobacco/Smoking Status: Tobacco use Status Tobacco use date assessed 10/17/24 10/17/24 13:12 Patient Tobacco Use Status Never used Tobacco 10/17/24 13:12 e-Cigarette/Vaping Use Never Used 10/17/24 13:12 Depression Screening Interpretation: Positive (Controlled on bupropion) Depression Screening Follow-up: Existing condition and In treatment Thrive Assessment: Date of Thrive Assessment Date Thrive assessed 05/26/24 10/17/24 13:12 Currently or been in a relationship where the following occur: No concerns reported Const General: comfortable, no acute distress and alert Orientation/consciousness: patient oriented x3 HENMT Ears: external ears normal, TM's normal bilaterally and EAC's normal General nose exam: Normal external nose present Mouth: Normal oral and palatal mucosa present and moist mucous membranes Eyes General: appearance normal, both eyes and all related structures Conjunctivae: conjunctivae normal Sclerae: sclerae normal Pupils: Equal, round and reactive pupils present EOM: EOMs intact bilaterally Neck Neck: Yes full ROM, Yes no lymphadenopathy and Yes supple Resp Effort & Inspection: normal respiratory effort and able to speak in complete sentences Auscultation: clear to auscultation bilaterally Cardio Rate: regular rate Rhythm: regular rhythm Heart sounds: S1 normal heart sound present and S2 normal heart sound present GI Palpation (GI): Soft to palpation, nontender and no masses Auscultation: normal bowel sounds General: Yes deferred (Up-to-date with her cervical cancer screening, goes to OBGYN) Back/Spine/Pelvis Back: No back tenderness Skin General skin exam: no rashes or lesions noted Neuro General: patient oriented x3, gait normal, tone normal, moves all extremities, Normal light touch and pain sensation and no focal motor deficits Cranial nerves: Yes CN's II-XII intact bilaterally and Yes Equal, round and reactive pupils present Cognition (Neuro): normal cognition Extrem General: Yes full ROM, Yes no joint enlargement, Yes no clubbing, cyanosis or edema and Yes no calf tenderness Psych Appearance: grossly normal and well kempt Mental Status: mental status grossly normal Speech and movement: Normal speech and movement present Affect: normal affect Coding Level of Care Code Est Pt Prev Care 40-64y(42880) Diagnoses Annual visit for general adult medical examination with abnormal findings Z00. History of herpes genitalis Z86.19 Hidradenitis suppurativa L73.2 Anxiety and depression F41.9; F32.A Chronic GERD K21.9 Assessment & Plan Assessment & Plan (1) Annual visit for general adult medical examination with abnormal findings: Code(s): Z00. - Encounter for general adult medical examination with abnormal findings Plan: Will check appropriate labs to include titers for MMR, varicella, hepatitis-B and T spot ordered. Recommended dental visit every 6 months and regular eye exams, at least every 2 years. Take adequate calcium in diet and vitamin-D 3 at 2000 IU per cap once a day, in addition to weight-bearing exercises to help maintain good muscle tone and weight control. Instructed to do self-breast exam, and recommended to continue with yearly mammogram, appointment scheduled for later this year, goes to her own OBGYN for routine Pap and pelvic exam, currently up-to-date. Immunization information provided: Yearly flu vaccine, shingles vaccine starting at age 50, at age 64 to start getting Prevnar 13 followed 1 year later by Pneumovax 23. Colonoscopy (2) History of herpes genitalis: Code(s): Z86.19 - Personal history of other infectious and parasitic diseases Category: Medical Plan: Refill sent for valacyclovir 500 mg to take 1 tablet twice a day x3 days only as needed for acute flare ups of herpes genitalis (3) Hidradenitis suppurativa: Code(s): L73.2 - Hidradenitis suppurativa Category: Medical Plan: Followed by Dr. Giovanny matamoros currently on spironolactone (4) Anxiety and depression: Comment: Prescribed previously at [facility] a year ago by Georges Farfan Code(s): F41.9 - Anxiety disorder, unspecified; F32.A - Depression, unspecified Category: Medical Plan: Continued on bupropion HCL XL 300 mg daily in a.m. (5) Chronic GERD: Code(s): K21.9 - Gastro-esophageal reflux disease without esophagitis Category: Medical Plan Patient was informed and verbally consented to the use of an ambient scribe for clinic note documentation during this visit. 1. Davis's Esophagus Continue esomeprazole and follow up regularly with environmental field technician, may need repeat 2. Elevated Parathyroid Hormone Repeat parathyroid hormone test ordered, complete before next telehealth visit. 3. Leg Cramps Magnesium supplementation recommended, monitor symptoms and report changes. 4. Vertigo Follow up advised if symptoms persist. Orders: Orders Complete Blood Count Auto Diff 10/17/24 F32.A - Depression, unspecified, F41.9 - Anxiety disorder, unspecified, K21.9 - Gastro-esophageal reflux disease without esophagitis, L73.2 - Hidradenitis suppurativa, Z86.19 - Personal history of other infectious and parasitic diseases, Z98.890 - Other specified postprocedural states Basic Metabolic Panel Fasting 10/17/24 F32.A - Depression, unspecified, F41.9 - Anxiety disorder, unspecified, K21.9 - Gastro-esophageal reflux disease without esophagitis, L73.2 - Hidradenitis suppurativa, Z86.19 - Personal history of other infectious and parasitic diseases, Z98.890 - Other specified postprocedural states Aspartate Amino Transferase 10/17/24 F32.A - Depression, unspecified, F41.9 - Anxiety disorder, unspecified, K21.9 - Gastro-esophageal reflux disease without esophagitis, L73.2 - Hidradenitis suppurativa, Z86.19 - Personal history of other infectious and parasitic diseases, Z98.890 - Other specified postprocedural states MM tomosynthesis screening BI 10/17/24 Z12.31 - Encounter for screening mammogram for malignant neoplasm of breast Alanine Aminotransferase 10/17/24 F32.A - Depression, unspecified, F41.9 - Anxiety disorder, unspecified, K21.9 - Gastro-esophageal reflux disease without esophagitis, L73.2 - Hidradenitis suppurativa, Z86.19 - Personal history of other infectious and parasitic diseases, Z98.890 - Other specified postprocedural states Lipid Panel 10/17/24 F32.A - Depression, unspecified, F41.9 - Anxiety disorder, unspecified, K21.9 - Gastro-esophageal reflux disease without esophagitis, L73.2 - Hidradenitis suppurativa, Z86.19 - Personal history of other infectious and parasitic diseases, Z98.890 - Other specified postprocedural states Vitamin D 25-OH Total 10/17/24 F32.A - Depression, unspecified, F41.9 - Anxiety disorder, unspecified, K21.9 - Gastro-esophageal reflux disease without esophagitis, L73.2 - Hidradenitis suppurativa, Z86.19 - Personal history of other infectious and parasitic diseases, Z98.890 - Other specified postprocedural states Medications: New esomeprazole magnesium 40 mg PO DAILY 30 caps 0RF Refilled bupropion HCl XL 300 mg PO QAM 90 tabs 4RF F32.A - Depression, unspecified, F41.9 - Anxiety disorder, unspecified
--- OUTSIDE RECORDS SUMMARY | 2024-10-17 15:33 | XMS_ITS | Clinical Summary ---
Author Organization [address] [place] [address] [place] [phone] Phone Care Team Providers Care Concrete Technician Name Role Phone David Patel MD Primary [...] EDT Office Visit Plastic & Reconstructive Surgery [address] [address] Lázaro Price PA S/P panniculectomy (Primary Dx) 08/15/2024 10:00 AM EDT Office Visit Plastic & Reconstructive Surgery [address] [phone] Vivienne Garcia PA S/P panniculectomy (Primary Dx) 2024 8:30 AM EDT Office Visit Plastic & Reconstructive Surgery [address] [address] Lázaro Price PA S/P panniculectomy (Primary Dx) 08/07/2024 Telephone Plastic & Reconstructive Surgery [address] [address] Lázaro Price PA 08/06/2024 9:49 PM EDT - 08/07/2024 12:11 AM EDT Emergency [facility] [address] [place] [address] Discharge Disposition: Home or Self Care 08/06/2024 Telephone Plastic & Reconstructive Surgery [address] [phone] Lázaro Price PA 08/03/2024 Telephone [facility] [address] [place] [address] Lázaro Price PA 08/02/2024 1:48 PM EDT Anesthesia Event [facility] [address] [place] [phone] Stoney Vásquez DO 08/02/2024 1:00 PM EDT - 08/02/2024 3:30 PM EDT Surgery [facility] [address] [place] [phone] Terrence Guzman DO PANNICULECTOMY [23962 (CPT )] 08/02/2024 11:34 AM EDT - 08/02/2024 5:40 PM EDT Hospital Encounter [facility] OR [address] [place] [phone] Terrence Guzman DO Excess skin; Abdominal pannus Discharge Disposition: Home or Self Care 07/26/2024 Telephone General Surgery [facility] [address] [place] [phone] Terrence Guzman DO 07/18/2024 3:00 PM EDT Consult Plastic & Reconstructive Surgery [facility] [address] [place] [phone] Terrence Guzman DO Rash (Primary Dx); Intertrigo; Abdominal pannus from Last 3 Months Immunizations Name Administration Dates Next Due Hepatitis B (Zpiatea-U-Rmlms , Recombivax HB-Adult) 19yo and older 11/28/2016,06/11/2016 [...] History Surgery Date Site/Laterality Comments SECTION PROCEDURE: LA DELIVERY ONLY; COMMENT: x2 BREAST REDUCTION Bilateral PROCEDURE: LA BREAST REDUCTION BARIATRIC SURGERY sleeve gastrectomy and [...] Office Visit Plastic & Reconstructive Surgery - [place] [address] [place] [address] [address] Health Maintenance Due Date Last Done Comments Breast Cancer Screening 1980 Hepatitis B Vaccines (3 of 3 - 19+ 3-dose series) 12/25/2017 10/30/2017, 11/28/2016, 06/11/2016 Colorectal Cancer Screening: Colonoscopy 01/18/2022 Social Influencers of Health Screening 01/18/2022 Depression Screening 02/10/2024 11/25/2023 COVID-19 Vaccine ( season) 2024 11/10/2022, 02/22/2020, 01/30/2020 Influenza Vaccine (#1) 2024 [...] ENDOTRACHEAL(NO CHARGE) Routine 08/02/2024 2:06 PM EDT LA EXCISION EXCESSIVE SKIN SUBQ TISSUE ABD INFRAUMBILICAL PANNICULECTOMY 08/02/2024 1:48 PM EDT Excess skin Abdominal pannus Special Needs 2hr with 30 minutes clean up POC , URINE DIAGNOSTIC Routine 08/02/2024 12:12 PM EDT HPV WITH REFLEX GENOTYPE Routine 03/10/2024 11:43 [...] AND ADIPOSE TISSUE 08/04/2024 10:45 AM EDT [facility] Gross Description A. Other, abdominal pannus 1726 grams: Labeled other, abdominal . Received in formalin is a 1726 g (per requisition), 21 x 16 x 10 cm aggregate consisting of two triangular fragments of unremarkable erickson-brown skin and subcutaneous adipose tissue. No masses or lesions are appreciated. A district representative section is submitted in one cassette, one piece. HÉCTOR 08/04/2024 10:45 AM EDT [facility] Disclaimer Unless otherwise specified, all tissue is 10% NB formalin fixed and paraffin embedded. 08/04/2024 10:45 AM EDT [facility] Tissue Topography unknown / Unknown 08/02/2024 3:10 PM EDT 08/03/2024 5:37 AM EDT us Terrence Hector Thomas DO LAB PATHOLOGY ORDERABLES Fin al Result [facility] [address] [place] [address], * TH AN ENDOTRACHEAL(NO CHARGE) (08/02/2024 2:06 PM EDT) Narrative Ambar Medrano CRNA - 08/02/2024 2:06 PM EDT Ambar Medrano CRNA 08/02/2024 2:08 PM General Information and Staff Patient location during procedure: OR Resident/CORE FINISHER: Ambar Medrano CRNA Performed by: Ambar Medrano [...] difficulty assessment: 1 - vent by mask us Stoney Vásquez DO ANESTHESIA ORDERABLES Final Res ult * POC , urine manually resulted (08/02/2024 12:12 PM EDT) HCG, Ur POC Negative Negative POC hCG Int QC Pass? Yes Yes Urine Urine specimen obtained by clean catch procedure / Unknown 08/02/2024 12:12 PM EDT Stoney Vásquez DO POINT OF CARE TEST ENTER/EDIT O RDERABLES Final Result * HPV with reflex genotype (03/10/2024 11:43 AM EST) HPV Negative Negative LAB MICROBIOLOGY METHOD 03/11/2024 2:58 PM EST [facility] Brushing/Spatula Cervix uteri structure / Unknown 03/10/2024 11:43 AM EST 03/11/2024 8:10 AM EST us Manda DYER LAB MOLECULAR DIAGNOSTICS O RDERABLES Final Result [facility] [address] [place] [address], [place] [phone] * Hepatitis C antibody (03/10/2024 11:32 AM EST) Hepatitis C Antibody Negative Negative LAB CHEMISTRY METHOD 03/10/2024 3:19 PM EST [facility] Blood Venous blood specimen / Unknown Venipuncture / Unknown 03/10/2024 11:32 AM EST 03/10/2024 11:32 AM EST us Manda Perez [facility] BLOOD ORDERABLES Final Result Performing Organization Address City/[facility]/ZIP Co de Phone Number [facility] [address] [place] [address], [place] [phone] * HIV 1,2 antibody, p24 antigen with reflex to differentiation (03/10/2024 11:32 AM EST) HIV Combo AB/AG Negative Negative LAB CHEMISTRY METHOD 03/10/2024 3:20 PM EST [facility] Blood Venous blood specimen / Unknown Venipuncture / Unknown 03/10/2024 11:32 AM EST 03/10/2024 11:32 AM EST Narrative [facility] - 03/10/2024 3:20 PM EST This [...] Perez CNM LAB BLOOD ORDERABLES Final Result [facility] [address] [place] [address], * Depression Screening (11/25/2023) Depression Screening abstracted Historical Provider HEALTH MAINTENANCE Final Result * (ABNORMAL) Lipid panel (06/20/2021) LDL/HDL Ratio 6(A) 0 - 4 Triglycerides 225(A) 0 - 150 mg/dL Cholesterol 154 0 - 200 mg/dL HDL 27(A) >=40 mg/dL LDL Cholesterol 82 0 - 100 mg/dL Blood Venous blood specimen / Unknown Historical Provider LAB BLOOD ORDERABLES Betty l Result from Last 3 Months or Most Recently Relevant to Health Maintenance Insurance [facility] [address] [place] [address] Care Teams Concrete Technician Relationship Specialty Start Date End Date David Patel MD [address] [place], [place] PCP - General Internal Medicine 07/19/21
--- OUTSIDE RECORDS SUMMARY | 2024-10-17 15:33 | XMS_ITS | Clinical Summary ---
Author Organization [facility] Address [address] [place] [id number] Care Team Providers Care Operations Leader Name Role Phone David Patel MD Primary [...] age to complete this topic Care Teams Operations Leader Relationship Specialty Start Date End Date David Patel MD [address] [place] [address] PCP - General 07/15/22
== END 2024-10-17 14:14 | disposition home or self-care (01) ==
LOC: HO.HMCC 13:10
PROVIDERS: PCP Internal Medicine; Visit Provider Internal Medicine
DX: Z00.01 Encounter for general adult medical examination with abnormal findings (principal); Z86.19 Personal history of other infectious and parasitic diseases; L73.2 Hidradenitis suppurativa; F41.9 Anxiety disorder, unspecified; F32.A Depression, unspecified; K21.9 Gastro-esophageal reflux disease without esophagitis

== ENCOUNTER → 2024-11-12 08:15 | Outpatient (BNV) | payer OTHER, SELFPAY | PROVIDERS: PCP Internal Medicine; Visit Provider Internal Medicine | DX: Z12.31 Encounter for screening mammogram for malignant neoplasm of breast (principal) | CPT/HCPCS: 77063; 77067 ==

== ENCOUNTER 2024-11-12 08:26 | Outpatient (REF) | payer OTHER, SELFPAY ==
--- OUTSIDE RECORDS SUMMARY | 2024-11-12 08:29 | XMS_ITS | Encounter Summary ---
Author Organization [facility] Address [address] [place] [address] Care Team Providers Care Administrative Sales Assistant Name Role Phone David Patel MD Primary Care Pr ovider Encounter Details Date Type Department Care Team (Late st Contact Info) Description 11/07/2024 Results Follow-Up Obstetrics and Gynecology - [place] [id number] [place], [place] [phone] Berkley Oviedo CNM [address] [place], [place] Social History Tobacco Use Types Packs/Day Years Used Date Smoking Tobacco: Never Smokeless Tobacco: Never Alcohol Use Standard Drinks/Week Comments Yes 0 (1 standard drink = 0.6 oz pur e alcohol) OCCASIONALLY Interpersonal Safety Answer Date Record ed Physical Abuse Unrecognized value 08/02/2024 Verbal Abuse Unrecognized value 08/02/2024 Comments No Sex and Gender Information Value Date Recorded Sex Assigned at Female 02/23/2024 10:30 AM EST Legal Sex Female 5:37 AM EST Gender Identity Female 02/23/2024 10:30 AM EST Sexual Orientation Straight 02/23/2024 10 :30 AM EST documented as of this encounter Progress Notes * Ann Clark MA - 11/08/2024 1:51 PM EDT ----- Message from Max Oviedo CNM sent at 11/07/2024 4:59 PM EDT ----- Negative eBrkley Oviedo CNM ----- Message ----- From: Lab, Background User Sent: 11/04/2024 8:35 PM EDT To: Berkley Oviedo CNM documented in this encounter Plan of Treatment Not on file documented as of this encounter Visit Diagnoses Not on filedocumented in this encounter Care Teams Administrative Sales Assistant Relationship Specialty Start Date End Date David Patel MD [address] [place] [address] PCP - General Internal Medicine 07/19/21 documented as of this encounter
--- OUTSIDE RECORDS SUMMARY | 2024-11-12 08:29 | XMS_ITS | Clinical Summary ---
Author Organization [facility] Address [address] [place] [address] Care Team Providers Care Bean Picker Name Role Phone David Patel MD Primary [...] age to complete this topic Care Teams Bean Picker Relationship Specialty Start Date End Date David Patel MD [address] [place] [address] PCP - General 07/15/22
--- OUTSIDE RECORDS SUMMARY | 2024-11-12 08:29 | XMS_ITS | Clinical Summary ---
Author Organization [address] [place] [address] [place] [phone] Phone Care Team Providers Care Farm Facility Manager Name Role Phone David Patel MD Primary Care Pr ovider Allergies No known active allergies Medications acetaminophen (TYLENOL) 500 mg tablet Take 2 tablets (1,000 mg total) by mouth. 06/22/19 23 Active buPROPion XL (WELLBUTRIN XL) 150 mg 24 hr tablet Take 1 tablet (150 mg total) by mouth 1 (one) time each day in the morning. 11/25/19 24 Active cholecalcifero l (VITAMIN D-3) 50 mcg (2,000 unit) tablet [...] mouth 2 (two) times a day. Active simethicone (MYLICON) 80 mg chewable tablet Chew 1 tablet (80 mg total) every 6 (six) hours if needed for flatulence. 90 tablet 3 01/27/20 24 Active Additional Information Patient not taking.Reported on 07/27/2024 ergocalciferol (VITAMIN D-2) 1,250 mcg (50,000 unit) capsule Take 1 capsule (50,000 Units total) by mouth 1 (one) time per week. 12 each 01/27/20 24 025 Active Additional Information Patient not taking.Reported on 07/27/2024 etonogestreL-e thinyl estradioL (NUVARING) 0.12-0.015 mg/24 hr vaginal ring Insert 1 each into the vagina every 28 (twenty-eight) days. Insert vaginally and leave in place for 3 consecutive weeks, then remove for 1 week. 3 each 3 03/10/19 25 Active Additional Information Patient not taking.Reported on 11/04/2024 magnesium, amino acid chelate, 133 mg tablet Take 1 tablet (133 mg total) by mouth 2 (two) times a day. Active cyclobenzaprin e (FLEXERIL) 10 mg tablet Take 1 tablet (10 mg total) by mouth every 8 (eight) hours if needed for muscle spasms for up to 30 doses. 30 each 07/19/19 Active cetirizine (ZyrTEC) 10 mg tablet Take 1 tablet (10 mg total) by mouth 1 (one) time each day. 30 each 08/09/19 25 Active esomeprazole (NexIUM) [address] capsuleIndicat ions:Gastroeso phageal reflux disease, unspecified whether esophagitis present Take 1 capsule (40 mg total) by mouth 1 (one) time each day before breakfast. Do not open capsule. 30 each 10/19/19 25 Active omeprazole (PriLOSEC) [address] capsule Take 1 capsule (40 mg total) by mouth 1 (one) time each day. Do not crush or chew. 30 each 10/19/19 25 Active nystatin (MYCOSTATIN) cream Apply to area twice daily for 14 days 11/25/19 24 Discontinued esomeprazole (NexIUM) [address] capsuleIndicat ions:Gastroeso phageal reflux disease, unspecified whether esophagitis present Take 1 capsule (40 mg total) by mouth 1 (one) time each day before breakfast. Do not open capsule. 30 each 01/27/20 24 025 Discontinued(R eorder) metroNIDAZOLE (FLAGYL) 500 mg tabletIndicati ons:Bacterial vaginitis Take 1 tablet (500 mg total) by mouth 2 (two) times a day for 7 days. Do not use mouth wash or consume alcohol until 48 hours after last dose 14 tablet 11/05/19 25 025 fluconazole (DIFLUCAN) 150 mg tablet Take 1 tablet (150 mg total) by mouth 1 (one) time for 1 dose. 1 tablet 11/05/19 025 Active Problems Problem Noted Date Diagnosed [...] Date Resolved Date Aneurysm of ascending aorta ([facility] V24) 10/08/2022 08/02/2024 Overview (12/18/2023): Last Assessment [...] Encounters Date Type Department Care Team Description 11/08/2024 Telephone Obstetrics [facility] [address] [place] [address] Ann Clark MA 11/07/2024 Results Follow-Up Obstetrics and Gynecology - [address] [phone] Berkley Oviedo CNM 11/04/2024 3:30 PM EDT Office Visit Obstetrics and Gynecology - [address] [phone] Berkley Oviedo CNM Bacterial vaginitis (Primary Dx); Screen for STD (sexually transmitted disease) 08/29/2024 9:30 AM EDT Office Visit Plastic & Reconstructive Surgery [address] [phone] Lázaro Price PA S/P panniculectomy (Primary Dx) 08/15/2024 10:00 AM EDT Office Visit Plastic & Reconstructive Surgery [address] [phone] Vivienne Garcia PA S/P panniculectomy (Primary Dx) from Last 3 Months Immunizations Immunization Administration Dates Next Due Hepatitis B (Zoewlfn-G-Lwqti , Recombivax HB-Adult) 19yo and older 11/28/2016,06/11/2016 [...] Sign Reading Time Taken Comments Blood Pressure 118/69 11/04/2024 3:35 PM EDT Pulse 75 11/04/2024 3:35 PM EDT Temperature 36.7 C (98.1 F) 08/06/2024 9:58 PM EDT Respiratory Rate 16 08/06/2024 9:58 PM EDT Oxygen Saturation 99% 08/06/2024 9:58 PM EDT Inhaled Oxygen Concentration - - Weight 78 kg (172 lb) 11/04/2024 3:35 PM EDT Height 157.5 cm (5' 2 ) 08/06/2024 9:52 PM EDT Body Mass Index 31.46 08/06/2024 9:52 PM EDT Plan of Treatment Health Maintenance Due Date Last Done Comments Breast Cancer Screening 1979 Colorectal Cancer Screening: Colonoscopy 1980 HPV Vaccines (1 - 3-dose SCDM series) 08/07/2006 Hepatitis B Vaccines (3 of 3 - 19+ 3-dose series) 12/25/2017 10/30/2017, 11/28/2016, 06/11/2016 Social Influencers of Health Screening 01/18/2022 Depression Screening 02/10/2024 11/25/2023 Influenza Vaccine (#1) 2024 , 11/10/2022, 12/06/2021, Additional history exists Cholesterol Screening (Lipid Panel) 06/20/2026 06/20/2021 Cervical Cancer Screening: HPV 03/10/2029 03/10/2024, 06/15/2017 DTaP,Tdap,and Td Vaccines (4 - Td or Tdap) 07/20/2031 07/19/2021, 09/09/2010, 07/28/2009 RSV Immunization Adult Patients (1 - 1-dose 75+ series) 08/07/2054 HIV Screening Completed 03/10/2024, 12/30/2018 Hepatitis C Screening Completed 03/10/2024, 023 COVID-19 Vaccine Completed 09/24/2024, 03/2022, 02/22/2020, Additional history exists HIB Vaccines Aged Out [...] Procedure Name Priority Date/Time Associated Diagnosis Comments TRICHOMONAS VAGINALIS ANTIGEN Routine 11/04/2024 4:08 PM EDT Bacterial vaginitis WET PREP, GENITAL Routine 11/04/2024 4:0 8 PM EDT Bacterial vaginitis CHLAMYDIA TRACHOMATIS AND NEISSERIA GONORRHOEAE PCR Routine 11/04/2024 4:08 PM EDT Screen for STD (sexually transmitted disease) HPV [...] Recently Relevant to Health Maintenance Results * Trichomonas vaginalis antigen (11/04/2024 4:08 PM EDT) Trichomonas vaginalis Negative Negative 11/04/2024 8:55 PM EDT [facility] Swab Vaginal structure / Unknown Non-blood Collection / Unknown 11/04/2024 4:08 PM EDT 11/04/2024 4:08 PM EDT us Berkley DYER LAB MICROBIOLOGY - GENERAL ORD ERABLES Final Result Performing Organization Address City/[facility] [address]/ZIP Co de Phone Number [facility] [address] [place] [address], [place] [phone] * Chlamydia trachomatis and Neisseria gonorrhoeae molecular study (11/04/2024 4:08 PM EDT) Neisseria gonorrhoeae PCR Negative Negative LAB MOLECULAR DIAGNOSTICS METHOD 11/05/2024 9:07 AM EDT [facility] Chlamydia trachomatis PCR Negative Negative LAB MOLECULAR DIAGNOSTICS METHOD 11/05/2024 9:07 AM EDT [facility] Swab Cervix uteri structure / Unknown Non-blood Collection / Unknown 11/04/2024 4:08 PM EDT 11/04/2024 4:08 PM EDT us Berkley DYER LAB MICROBIOLOGY - GENERAL ORD ERABLES Final Result [facility] [address] [place] [address], [place] [phone] * Wet prep, genital (11/04/2024 4:08 PM EDT) Clue Cells, Wet Prep Negative Negative 11/04/2024 8:35 PM EDT [facility] Yeast, Wet Prep Negative Negative 11/04/2024 8:35 PM EDT [facility] Trichomonas, Wet Prep Indeterminate Negative 11/04/2024 8:35 PM EDT [facility] Comment:Refer to Trichomonas antigen. Swab Vaginal structure / Unknown Non-blood Collection / Unknown 11/04/2024 4:08 PM EDT 11/04/2024 4:08 PM EDT Berkley DYER LAB MICROBIOLOGY - GENERAL ORD ERABLES Final Result Performing Organization Address City/[facility] [address]/ZIP Co de Phone Number [facility] [address] [place] [address], [place] [phone] * HPV with reflex genotype (03/10/2024 11:43 AM EST) HPV Negative Negative LAB MICROBIOLOGY METHOD 03/11/2024 2:58 PM EST [facility] Brushing/Spatula Cervix uteri structure / Unknown 03/10/2024 11:43 AM EST 03/11/2024 8:10 AM EST us Manda DYER LAB MOLECULAR DIAGNOSTICS O RDERABLES Final Result Performing Organization Address [facility] [address]/ZIP Co de Phone Number [facility] [address] [place] [address], [place] [phone] * Hepatitis C antibody (03/10/2024 11:32 AM EST) Hepatitis C Antibody Negative Negative LAB CHEMISTRY METHOD 03/10/2024 3:19 PM EST [facility] Blood Venous blood specimen / Unknown Venipuncture / Unknown 03/10/2024 11:32 AM EST 03/10/2024 11:32 AM EST us Manda Perez [facility] BLOOD ORDERABLES Final Result Performing Organization Address City/[facility] [address]/ZIP Co de Phone Number [facility] [address] [place] [address], [place] [phone] * HIV 1,2 antibody, p24 antigen with reflex to differentiation (03/10/2024 11:32 AM EST) HIV Combo AB/AG Negative Negative LAB CHEMISTRY METHOD 03/10/2024 3:20 PM EST [facility] Blood Venous blood specimen / Unknown Venipuncture / Unknown 03/10/2024 11:32 AM EST 03/10/2024 11:32 AM EST [facility]ative [facility] - 03/10/2024 3:20 PM [...] Perez CNM LAB BLOOD ORDERABLES Final Result [facility] [address] [place] [address], * Depression Screening (11/25/2023) Pathologist [facility] Depression Screening abstracted Historical Provider HEALTH MAINTENANCE [...] Recently Relevant to Health Maintenance Insurance [facility] Care Teams Farm Facility Manager Relationship Specialty Start Date End Date David Patel MD [address] [place], [place] PCP - General Internal Medicine 07/19/21
--- OUTSIDE RECORDS SUMMARY | 2024-11-12 08:29 | XMS_ITS | Encounter Summary ---
Author Organization [facility] Address [address] [place] [address] Care Team Providers Care Air Quality Instrument Specialist Name Role Phone David Patel MD Primary Care Pr ovider Encounter Details Date Type Department Care Team (Late st Contact Info) Description 11/08/2024 Telephone Obstetrics [facility]necology - [facility] [address] [facility] [place] [phone] Ann Clark MA Social History Tobacco Use Types Packs/Day [...] Notes * Ann Clark MA - 11/08/2024 1:52 PM EDT Spoke to patient about test result was negative. documented in this encounter Plan of Treatment Not on file documented as of this encounter Visit Diagnoses Not on filedocumented in this encounter Care Teams Air Quality Instrument Specialist Relationship Specialty Start Date End Date David Patel MD [address] [place] [facility] [place] PCP - General Internal Medicine 07/19/21 documented as of this encounter
== END 2024-11-12 08:27 | disposition home or self-care (01) ==
LOC: HO.MAMMO 08:26
PROVIDERS: PCP Internal Medicine; Visit Provider Internal Medicine
DX: Z12.31 Encounter for screening mammogram for malignant neoplasm of breast (principal)
CPT/HCPCS: 77063; 77067